=== PATIENT | female | born 1970 | race Caucasian/White ===

== ENCOUNTER 2022-05-30 12:37 | Emergency (ER) | payer BC, SELFPAY ==
[2022-05-30 12:57] VITALS: BP 115/85; PULSE 80; RESP 18; TEMP 36.7; O2SAT 95; BMI 34.0
[2022-05-30 13:05] VITALS: BP 118/96; PULSE 85; RESP 16; O2SAT 95
--- NOTE | 2022-05-30 13:41 | CRLHL7_ITS ---
For Patients: As a result of the Cures Act, medical imaging exams and procedure reports are released immediately into your electronic medical record. You may view this report before your referring provider. If you have questions, please contact your health care provider. INDICATION: CHEST PAIN; COVID +10 DAYS AGO TECHNIQUE: Chest 2 views COMPARISON: None FINDINGS: Cardiovascular and mediastinum: Heart size and vasculature are normal in caliber and appearance. Lungs and pleural spaces: Lungs are clear. No sign of infiltrate or mass. No sign of pleural effusion. No pneumothorax. Bones and soft tissues: No significant findings. IMPRESSION: No acute findings. Dictated by Cooper Pinto MD @ 05/30/2022 2:05:19 PM (Electronically Signed)
--- NOTE | 2022-05-30 13:42 | ED_ITS ---
HPI - Chest Pain General Time Seen by Provider: 13:37 Date Seen: 05/30/22 Chief Complaint: Chest Pain Stated Complaint: Covid+ 10 days ago, chest pain Time Seen by Provider: 05/30/22 13:18 Source: patient Mode of arrival: ambulatory Limitations: no limitations History of Present Illness HPI narrative: 51-year-old female with prior history of acute CVA who presents today with chest pain. Patient was diagnosed with COVID about 10 days ago. She notes diffuse anterior chest pain since then. This is worse in the morning and gets better during the course the day. She denies shortness of breath, pain does get a little worse with deep inspiration. She denies nausea, vomiting, diarrhea, abdominal pain, urinary symptoms. She has no cough. She has not had any fevers in the last couple of days. She is not currently on a blood thinner. She says if she bends forward and stands up too quickly she does get a little lightheaded. Related Data Home Medications Medication Instructions Recorded Confirmed levothyroxine 100 mcg tablet 100 mcg PO DAILY 03/26/22 03/26/22 loratadine 10 mg tablet 10 mg PO QDAY 03/26/22 03/26/22 sertraline 100 mg tablet 100 mg PO DAILY 03/26/22 03/26/22 sertraline 25 mg tablet 25 mg PO QDAY 03/26/22 03/26/22 trazodone 50 mg tablet 50 mg PO QDAY 03/26/22 03/26/22 diet pills 05/30/22 Allergies Allergy/AdvReac Type Severity Reaction Status Date / Time No Known Allergies Allergy Unknown Verified 03/26/22 15:19 Review of Systems Status of ROS Reports: 10 or more systems reviewed and unremarkable except as noted in History and below [facility] Social History Smoking Status: Never smoker Do you use any of these nicotine containing products: None Second hand tobacco smoke exposure: No How often do you have a drink containing alcohol: never AUDIT-C Alcohol total score: 0 Non-prescribed substance use: denies use Exam Narrative Exam Narrative: General: Well-developed and well-nourished, no acute distress Head: Atraumatic and normocephalic Eyes: Pupils are equal reactive, extraocular motions intact, conjunctiva clear ENT: External nose and ears are normal, posterior pharynx without erythema or exudate Neck: No midline cervical tenderness, full spontaneous range of motion the neck, trachea midline, no adenopathy Heart: Regular rate and rhythm no murmurs or thrills Lungs: Clear to auscultation bilaterally without wheezes or crackles Abdomen: Soft, nontender, nondistended with active bowel sounds Musculoskeletal: No tenderness, deformity, or edema Neurologic: Awake, alert, and oriented x3, no gross focal neurologic deficits, cranial nerves intact as tested Psych: Mood and affect are appropriate Skin: No rashes Const Vital Signs, click to edit/add: Vital Signs - 24 hr 05/30/22 12:57 Temperature 98.1 F Pulse Rate [Right Pulse Oximeter] 80 Respiratory Rate 18 Blood Pressure [Left Upper Arm] 115/85 Pulse Oximetry 95 Oxygen Delivery Method Room Air Documenting provider has reviewed patient's vital signs: yes Course Course Hospital Course: Patient seen and examined, prior records are reviewed. Patient with diffuse anterior chest pain since being diagnosed with COVID about 10 days ago. Pain is not worse with position, does get a little bit worse with deep inspiration. She denies any shortness of breath. No hypoxia or tachycardia, however high risk for pulmonary embolism given recent COVID. D-dimer is ordered. Labs including troponin ordered as well. IV fluids are initiated due to episodes of lightheadedness. She has no palpitations, CRP is ordered as well with consideration for endocarditis or myocarditis. Toradol IV will be given. Reevaluation(s) Reevaluation #1: Labs reassuring including normal troponin, negative D-dimer. Patient's vital is stable and can be discharged. She will be started on a short course of prednisone. Time: 15:17 Vital Signs Vital signs: Initial Vital Signs Temperature 98.1 F 05/30/22 12:57 Temperature Source Temporal Artery Scan 05/30/22 12:57 Pulse Rate 80 05/30/22 12:57 Pulse Rhythm 05/30/22 12:57 Respiratory Rate 18 05/30/22 12:57 Blood Pressure 115/85 05/30/22 12:57 Blood Pressure Mean 95 05/30/22 12:57 Blood Pressure Position Supine 05/30/22 12:57 Pulse Oximetry 95 05/30/22 12:57 Oxygen Delivery Method 05/30/22 12:57 Vital Signs Temperature 98.1 F 05/30/22 12:57 Pulse Rate 80 05/30/22 12:57 Respiratory Rate 18 05/30/22 12:57 Blood Pressure 115/85 05/30/22 12:57 Pulse Oximetry 95 05/30/22 12:57 Oxygen Delivery Method 05/30/22 12:57 Temperature 98.1 F 05/30/22 12:57 Pulse Rate 80 05/30/22 12:57 Respiratory Rate 18 05/30/22 12:57 Blood Pressure 115/85 05/30/22 12:57 Pulse Oximetry 95 05/30/22 12:57 Oxygen Delivery Method 05/30/22 12:57 MDM - Chest Pain Medical Records Data Attestation: I reviewed the patient's medical records. Lab Data Attestation: I reviewed the patient's lab results. Labs: Lab Results 05/30/22 05/30/22 05/30/22 Range/Units 14:12 14:12 14:12 D-Dimer Quant (PE/DVT) 0.33 (0.00-0.50) ug/ml Sodium 139 (135-149) mmol/L Potassium 4.4 (3.6-5.1) mmol/L Chloride 106 (96-114) mmol/L Carbon Dioxide 27 (20-32) mmol/L BUN 12 (7-30) mg/dL Creatinine 1.0 (0.5-1.5) mg/dL Estimated Creat Clear 57.47 Estimated GFR 68 ml/min Glucose 80 (60-115) mg/dL Calcium 9.2 (8.4-10.6) mg/dL POC Troponin I 0.00 L (0.01-0.04) ng/ml ECG Data Attestation: I personally reviewed and interpreted this ECG as follows: ECG interpretation date: 05/30/22 ECG interpretation time: 13:05 Prior ECG tracings: not available for review Interpretation: Performed at 1:00 p.m. demonstrates normal sinus rhythm rate 79, no acute ST elevations or depressions, normal intervals, normal axis, QTC 442, IL 144. No prior for comparison. Core Measures AMI core measures followed: No Measure exclusions: not indicated Discharge Plan Discharge Clinical Impression: Chest pain Condition: Stable Instructions: Chest Pain (DC) Additional Instructions: Take Tylenol as needed for pain or fever. Follow-up with your regular doctor next week if needed. Activity Level: No Restrictions Discharge Diet: Regular Prescriptions: No Action levothyroxine 100 mcg tablet 100 mcg PO DAILY sertraline 100 mg tablet 100 mg PO DAILY trazodone 50 mg tablet 50 mg PO QDAY sertraline 25 mg tablet 25 mg PO QDAY loratadine 10 mg tablet 10 mg PO QDAY diet pills Label Comments: Pt unable to recall name or strength of diet pills. Follow Up/Referrals: Provider,Not a Local [Primary Care Provider] - Stand Alone Forms: [employer] Info Instructions
--- OUTSIDE RECORDS SUMMARY | 2022-05-30 13:55 | XMS_ITS | Clinical Summary ---
:1970 Author Organization [facility] Address [address] [place] [address] Care Team Providers Name Role Phone Unavailable Primary Care Provider Unavailable Source Comments Patient records contain information from all sites at [facility]. For routine questions regarding patient records, call [phone] during business hours, M-F 8:00 AM - 5:00 PM Central Time. Record requests for emergency care only can be directed to [phone] at any time.[facility] Social History Tobacco Use Types Packs/Day Years Used Date Smoking Tobacco: Never Assessed Sex Assigned at Date Recorded Not on file Plan of Treatment Health Maintenance Due Date Last Done Comments CT Colonography 1970 Cologuard 1970 Colonoscopy 1970 Colorectal Cancer Screening 1970 FIT 1970 Fasting Glucose for 1970 Diabetes Screening HIV Screening 1970 Hepatitis B Vaccines (1 of 1970 3 - 3-dose series) Hepatitis C Screening 1970 Lipid (Cholesterol) 1970 Screening Mammogram 02/26/2011 02/26/2010 Cervical Cancer Screening 02/26/2013 02/26/2010 Zoster Vaccines (1 of 2) 2020 DTaP,Tdap,and Td Vaccines 03/06/2021 03/06/2011, 06/26/2001 (2 - Td or Tdap) Depression Screening 07/27/2021 (Annual PHQ-2) COVID-19 Vaccine (5 - 04/08/2022 02/11/2022, 06/25/2021, Booster for Moderna series) 11/09/2020, Addition al history exists Influenza Vaccine (#1) 2022 04/26/2020, 03/30/2020, 04/02/2019, Additional history exists Pneumococcal vaccine (0-64 Aged Out No lo nger eligible years) based on patient 's age to complete this topic Insurance Payer Benefit Plan / Subscriber ID Effective Phone Address T ype Group Dates PREFERREDONE PREFERREDONE [id number] 2019-Pre [phone] BOX PPO ADMINISTRATIVE ADMINISTRATIVE sent [phone] [employer] [place] [id number] Guarantor Name Account Type Relation to Date of Phone Billing Address Patient Debra Dias Personal/Famil Self 1970 [phone] [address] (Home) [place] [address]
--- OUTSIDE RECORDS SUMMARY | 2022-05-30 13:55 | XMS_ITS | Clinical Summary ---
:1970 Author Organization [facility] [place] [address] Care Team Providers Name Role Phone Tesfaye Raya MD Primary Care Provider [phone] Allergies Active Allergy Reactions Severity Noted Date Comments Birch 12/29/2005 Cats (Fur, Dander, Saliva) 12/29/2005 Eucalyptus Respiratory Distress Low 04/14/2015 Lactose 12/29/2005 Mold Extracts 12/29/2005 Medications Medication Sig Dispensed Refills Start Date End Date Status loratadine (CLARITIN) Take 10 mg by 0 Active 10 mg tablet mouth once daily if needed for Allergy Symptoms. lactase (LACTAID) Take 3 tablets by 270 tablet 0 05/09/2015 Active 3,000 unit mouth 3 times tabletIndications: daily with meals. Lactose intolerance in adult aspirin 325 mg Take 1 tablet by 90 tablet 1 06/07/2015 Active tabletIndications: mouth once daily Stroke (cerebrum) with a meal. (HC), Stroke (cerebrum) (HC) Cholecalciferol, Take 1 tablet by 90 tablet 3 06/07/2015 Active Vitamin D3, 2,000 mouth once daily. unit tabletIndications: Vitamin D deficiency medication order Replacement CPAP 1 Units 0 02/10/2019 Active composerIndications: mask and tubing Sleep apnea, unspecified type medication order Patient just 1 Tube 0 02/21/2019 Active composerIndications: needs the new Sleep apnea, hose, new unspecified type headgear and new nose plug for her CPAP machine fluocinonide 0.05% Apply topically 60 g 3 11/23/2019 Active topical (LIDEX) 0.05 to affected % creamIndications: area(s) 2 times Eczema, unspecified daily. type SEA-OMEGA 30 1,200 TAKE 2 CAPSULE BY 180 capsule 1 07/16/2020 Active (144-216) mg MOUTH NIGHTLY AT capsuleIndications: BEDTIME Stroke (cerebrum) (HC) nystatin-triamcinolon Apply topically 60 g 3 01/25/2021 Active e (MYCOLOG) to affected creamIndications: area(s) 3 times Angular stomatitis daily. metroNIDAZOLE 0.75 % Apply topically 1 Tube 3 02/11/2021 Active creamIndications: to affected Vaginal cyst area(s) 3 times daily. phentermine Take 1 Tablet 30 Tablet 5 02/07/2022 Act laverne (ADIPEX-P) 37.5 mg (37.5 mg) by tabletIndications: mouth once daily Obesity, Class II, before a meal. BMI 35-39.9 albuterol HFA Inhale 1-2 Puffs 1 Each 5 04/29/2022 Active (PRO-AIR; VENTOLIN; by mouth every 4 PROVENTIL) 90 hours while mcg/actuation awake. inhalerIndications: Exercise-induced asthma levothyroxine Take 1 Tablet (75 30 Tablet 11 04/29/2022 Active (SYNTHROID) 75 mcg mcg) by mouth tabletIndications: once daily. Hypothyroidism (acquired) QUEtiapine (SEROquel Take 1 Tablet (50 30 Tablet 11 04/29/2022 Active XR) 50 mg Tb24 mg) by mouth once Extended-Release daily. tabletIndications: Obsessive-compulsive disorder, unspecified type sertraline (ZOLOFT) Take 2 Tablets 60 Tablet 11 04/29/2022 Active 100 mg (200 mg) by mouth tabletIndications: once daily. Bipolar disorder, in partial remission, most recent episode depressed (HC) traZODone (DESYREL) Take 2 Tablets 60 Tablet 11 04/29/2022 Active 100 mg (200 mg) by mouth tabletIndications: at bedtime. Insomnia, idiopathic Active Problems Problem Noted Date Exercise-induced asthma 09/10/2021 Aphasia due to stroke 06/26/2015 Constipation 06/11/2015 Acute blood loss anemia 04/20/2015 Stroke , 04/10, s/p TPA and thrombectomy 04/14/2015 Sleep apnea , (CPAP) 12/12/2014 Obesity, Class II, BMI 35-39.9 12/12/2014 Insomnia 09/21/2012 Vitamin D deficiency 08/08/2010 Routine health maintenance 08/02/2010 Overview: Mammogram, 04/17 Hypothyroidism 12/21/2009 BIPOLAR DISORDER, [place]/antidepressants to be regula duran by Dr. Marie 08/16/2006 only. Resolved Problems Problem Noted Date Resolved Date Adjustment disorder with mixed disturbance of emotions and 0 08/16/2006 09/21/2012 conduct Unspecified personality disorder 08/16/2006 015 Adjustment disorder with mixed disturbance of emotions and 0 08/16/2006 09/21/2012 conduct DEPRESSION 02/06/2006 12/12/2014 Overview: Multiple stressors Encounters Date Type Specialty Care Team Description 05/30/2022 Nurse Triage Tesfaye Raya MD Chest Pain 04/29/2022 Telephone Tesfaye Raya MD 04/07/2022 Ancillary Procedure 04/07/2022 Travel from Last 3 Months Immunizations Name Administration Dates Next Due AMB INFLUENZA, IIV4 (AGE=>6MOS) MDV (Flu 04/26/2020 Clinic Only) Influenza, IIV3 (Age >=3 years) 06/02/2005, 05/22/2004 Influenza, IIV4 04/02/2019, 07/07/2016, 04/26/2015 Td (Age >=7 Years) 06/26/2001 Tdap 03/06/2011 Family History Medical History Relation Name Comments Cancer-colon Brother 1 Hypertension Brother 2 Heart Disease Father [place] at age 42-dec eased at age 61 Cancer-breast Maternal Aunt age ? 50's Hypertension Mother Cancer-ovarian No Family History Relation Name Status Comments Brother 1 Brother 2 Father Maternal Aunt Mother Social History Tobacco Use Types Packs/Day Years Used Date Never Smoker Smokeless Tobacco: Never Used Alcohol Use Standard Drinks/Week Comments No 0 (1 standard drink = 0.6 oz pure alcoho l) occ. One time a year. Alcohol Habits Answer Date Recorded How often do you have a drink containing alcohol? Never 09/10/2021 How many drinks containing alcohol do you have on Not asked a typical day when you are drinking? How often do you have six or more drinks on one Not asked occasion? Comment: occ. One time a year. 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 Respiratory Rate 15 05/28/2021 8:30 AM CDT Oxygen Saturation 97% 07/12/2021 4:17 PM INSURANCE VERIFICATION CLERK Inhaled Oxygen Concentration - - Weight 100.7 kg (222 lb) 02/07/2022 4:19 PM CDT Height 161.7 cm (5' 3.66) 02/07/2022 4:19 PM CDT Body Mass Index 38.51 02/07/2022 4:19 PM CDT Plan of Treatment Health Maintenance Due Date Last Done Comments Pneumococcal series for age 19-64 1976 (1 - PCV) Hepatitis C screening for age 0411/21/1988 18-79 Colonoscopy through age 75 11/22/2015 Zoster (shingles) series for age 0411/21/2020 50+ (1 of 2) Tetanus booster 03/06/2021 03/06/2011, 06/26/2001 Influenza for age 50-64 03/27/2022 04/26/2020, 04/02/2019, 07/07/2016, Additional history exists COVID-19 vaccine series (5 - 04/08/2022 02/11/2022, 021, Booster for Moderna series) 11/09/2020, Addition al history exists BMI (ht and wt on same day) for 02/07/2023 02/07/2022, 08/27, age 18+ 02/11/2021, Additional history exists Depression screening for age 12+ 02/07/2023 02/07/2022, , 08/24/2020, Additional history exists Pap test for age 21-65 02/12/2023 02/13/2020, 07/31/2016, 12/12/2014, Additional history exists Mammogram for age 45-75 04/07/2023 04/07/2022, 02/20/2021, 02/12/2021, Additional history exists Lipids for age 45-75 02/07/2027 02/07/2022, 02/11/2021, 02/13/2020, Additional history exists Tdap Completed 03/06/2011 Procedures Procedure Name Priority Date/Time Associated Diagnosis Comme nts XR MAMMO TERRI BILAT Routine 04/07/2022 12:05 PM Visit for scre ening Results for this SCREEN CDT mammogram procedure are i n the results section. from Last 3 Months Results XR MAMMO TERRI BILAT SCREEN (04/07/2022 12:05 PM CDT) Anatomical Region Laterality Modality BREASTS, Breast Left, Breast Right Bilateral Mammo graphy Specimen (Source) Anatomical Location Collection Method / Collectio n Time Received Time / Laterality Volume Impressions 04/08/2022 12:03 PM CDT ??There is no radiographic evidence for malignancy. ??Recommend annual mammograms. MAMMOGRAM ASSESSMENT: ??ACR 1 Negative PATIENTS: You will also receive a letter with your examination results in an easy to read format. ??If you have qu estions about your results, please contact your referring provider. Narrative 04/08/2022 12:03 PM CDT For Patients: As a result of the Century Cures Act, medical imaging exams and procedure reports are released immediately into your electronic medical record. You may view this report before your referring provider. If you have questions, please contact [facility] care provider. XR MAMMO TERRI BILAT SCREEN [[id number]] CLINICAL HISTORY: ??This is an asymptoma tic 51 y.o. patient. INDICATION FOR EXAM: Mammogram Screening . TECHNIQUE: CC & MLO views were obtained. ??This study was evaluated with the assistance of Computer-Aided Detecti on. Breast Tomosynthesis was used in interpretation. COMPARISON FILM: Yes 02/12/21 [facility] 01/05/18 [facility] FINDINGS: ??The breasts are heterogeneou sly dense, which may obscure small masses. There are no dominant masses, armas spicious micro calcifications or areas of architectural distortion. 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
--- OUTSIDE RECORDS SUMMARY | 2022-05-30 13:56 | XMS_ITS | Encounter Summary ---
:1970 [facility] Address [address] [place] [address] Care Team Providers Name Role Phone Unavailable Primary Care Provider Unavailable Reason for Visit Reason Comments Other Encounter Details Date Type Department Care Team Description 04/21/2015 Telephone Careline Unassigned, Provider Other [address] [place], [place] [address] [place] [address] Social History Tobacco Use Types Packs/Day Years Used Date Smoking Tobacco: Never Assessed Sex Assigned at Date Recorded Not on file documented as of this encounter Nursing Notes Agnes Ng RN - 04/21/2015 11:05 PM CDT pt's spouse doesn't think pt is safe their and he is wondering how difficult it would be to have hertransferred somewhere else. Caller has not spoke with staff there about his concerns (why would I do that?) Caller states last night he left for 6 hours and he came back and her feeding tube was bleeding States he is staying with her tonight. Advised caller discuss his concerns with supervisors at the hospital Caller states understanding and agrees with plan and denies further questions at this time. Agnes Ng RN Nilesh Rodriguez - 04/21/2015 10:38 PM CDT Which care system or clinic is the patient normally seen at? [facility]. Situation:Patient had a stroke on Thursday and does not feel safe at the [facility]. would like to have her transferred. Plan:A nurse will return your call. If your symptoms change for the worse, please call us back [phone].. documented in this encounter Plan of Treatment Not on filedocumented as of this encounter Visit Diagnoses Not on filedocumented in this encounter
--- OUTSIDE RECORDS SUMMARY | 2022-05-30 13:56 | XMS_ITS | Encounter Summary ---
:1970 Author Organization [facility] Address [address] [place] [address] Care Team Providers Name Role Phone Unavailable Primary Care Provider Unavailable Reason for Visit Reason Comments COVID Nurse Line Encounter Details Date Type Department Care Team Description 04/29/2020 Clinical Communication Division of India Rubalcava COV ID Nurse Line [facility] Internal R.N. [facility], [facility] in [place], [place] [address] [place] [address] Social History Tobacco Use Types Packs/Day Years Used Date Smoking Tobacco: Never Assessed Sex Assigned at Date Recorded Not on file documented as of this encounter Miscellaneous Notes Telephone Encounter - India Rubalcava, RAmirahN. - 04/29/2020 9:18 AM CDT COVID-19 Nurse Line Screening ASSESSMENT COVID 19 Screening Have you had close contact with a person who has a LABORATORY CONFIRMED case of COVID-19 in the past14 days?: No - Continue screening. In the last 48 hours have you had any of the following symptoms?: No - Complete screening. Testing is not recommended at this time. May consider asymptomatic testing if advised for public health, work,school and travel related purposes PLAN Endpoint recommendation: Screening negative, testing indicated per request for father is having symptoms so parents want the whole family tested, sent to [facility] located at [address] Testinghours are M-F 8:30 am to 4:30 pm. Sat-Sun 9 am to 12:30 pm. When you arrive stay in your car and someone will direct you. , If it is currently after hours, please report to the testing site when it is next open. and Please avoid using public transportation per CDC recommendation. If you do not have personal transportation please self- quarantine until a personal transportation option is available. Care Points provided: STANDARD PRECAUTIONS FOR ALL PATIENTS: Wash hands often with soap and water for at least 20 seconds, especially after blowing your nose, coughing, sneezing, or having been in a public place. If soap and water aren't available, use a hand entry level software engineer that contains at least 60% alcohol. Avoid close contact with anyone who may be exhibiting respiratory symptoms such as coughing and sneezing. Avoid touching your eyes, nose and mouth. Clean and disinfect frequently touched surfaces daily. Cover your mouth and nose with a cloth face cover when around others or in public. The cloth face cover is not a substitute for social distancing. Continue to keep about 6 feet between yourself andothers. Monitor for symptoms. Do not take your temperature within 30 minutes of exercise. If your test or screen is negative and new symptoms develop please contact your provider if it has been greaterthan 72 hours since you were tested. Educational Resource: https://www.cdc.gov/coronavirus/2019-ncov/ zcqgtzk-kctqcnt-tyhu/index.html RECOMMENDATIONS TESTING CRITERIA IS MET: Stay home except to get medical care. Quarantine for 14 days if exposed to someone with a laboratory confirmed case of COVID-19 exposure regardless of your test results. Avoid public areas and public transportation. Separate yourself from other people and stay in a specific sick room if possible. Wear a cloth face covering, over your nose and mouth if youmust be around other people even at home). Cover your nose and mouth when coughing or sneezing. Contact employer/occupational health department to notify them that they are being tested. Seek emergent care if any of the following occur: 1) Trouble breathing, 2) Bluish lips or face, 3) Persistent pain or pressure in the chest, 4) Newly confused or unable to stay alert and awake. Notify appropriate care provider if any new or worsening symptoms. You may need re-testing if it has been greater than 72 hours after a negative COVID- 19 test result. Education Resources: https://www.cdc.gov/coronavirus/2019- ncov/hn-zdf-cih-sick/ehquj-dlig-vjyg.html Education: Patient/caregiver able to teach back Patient agreeable to plan of care: Yes The following references were used: [facility] novel coronavirus (COVID- 19) resources Nursing judgement documented in this encounter Plan of Treatment Not on filedocumented as of this encounter Visit Diagnoses Not on filedocumented in this encounter Additional Health Concerns Infection Onset Date Last Indicated Resolved Time COVID19 Pending 04/29/2020 04/29/2020 04/30/2020 1:53 AM CDT Assessment Noted Time PHQ-9 Depression Total Score: 5 05/20/2010 10:39 AM CD T documented as of this encounter
--- OUTSIDE RECORDS SUMMARY | 2022-05-30 13:56 | XMS_ITS | Encounter Summary ---
:1970 Author Organization [facility] Address [address] [place] [address] Care Team Providers Name Role Phone Unavailable Primary Care Provider Unavailable Reason for Visit Reason Onset Date Comments Outpatient COVID-19 Testing 04/29/2020 Encounter Details Date Type Department Care Team Description 04/29/2020 External Outreach Department of Wendy Minor , Infection Upper Medicine in [facility] C[facility] Respiratory ([place], [place] [address] Dx) [address] [place] [address] [phone] Social History Tobacco Use Types Packs/Day Years Used Date Smoking Tobacco: Never Assessed Sex Assigned at Date Recorded Not on file documented as of this encounter Progress Notes Yadira Lebron, R.M.A. - 04/29/2020 9:18 AM CDT Encounter created for the drive-through COVID-19 testing. documented in this encounter Plan of Treatment Not on filedocumented as of this encounter Procedures Procedure Name Priority Date/Time Associated Diagnosis Comme nts SARS CORONAVIRUS-2 Routine 04/29/2020 10:43 AM Infection Upper Results for this RNA, V CDT Respiratory procedure are i n the results section. documented in this encounter Results SARS Coronavirus-2 RNA, V Symptomatic (04/29/2020 10:43 AM CDT) [facility] Method Time Signature SARS-CoV-2 Swab, 04/30/2020 MKTO Specimen Nasopharynx 1:53 AM CDT Source SARS CoV-2 Undetected Undetected 04/30/2020 MKTO RNA, TMA 1:53 AM CDT Comment: SARS-CoV-2 RNA absent. This result does not rule out COVID-19 in the patient, as the sensitivity of the test depends o n the timing of the specimen collection and the quality of the specim en. Result should be correlated with patient's history and clinical presentat ion. ----ADDITIONAL INFORMATION---- This test is performed using the Aptima SARS-CoV-2 assay ([employer] which has received Emergency Use Authori zation (EUA) by the U.S. Food and Drug Administration. Fact sheets for this Emergency Use Autho rization (EUA) assay can be found at the following links: For Healthcare Providers: https://www.[employer] a.gov/media/672017/download For Patients: https://www.fda.gov/media/ 855205/download Specimen Anatomical Collection Method Collection Time Receive d Time (Source) Location / / Volume Laterality Varies 04/29/2020 10:43 04/29/2020 4:29 (Nasopharynx) AM CDT PM CDT Wendy Garcia APRN C.N.P. LAB MICROBIOLOGY - GENERAL ORDERABLES Performing Organization Address City/State/ZIP Code Phon e Number [facility]- [address] [place] [address] [place] [address] [address] documented in this encounter Visit Diagnoses Diagnosis Infection Upper Respiratory - Primary documented in this encounter Additional Health Concerns Infection Onset Date Last Indicated Resolved Time COVID19 Pending 04/29/2020 04/29/2020 04/30/2020 1:53 AM CDT Assessment Noted Time PHQ-9 Depression Total Score: 5 05/20/2010 10:39 AM CD T documented as of this encounter
--- OUTSIDE RECORDS SUMMARY | 2022-05-30 13:56 | XMS_ITS | Encounter Summary ---
:1970 Author Organization [facility] Address [address], [place] [address] Care Team Providers Name Role Phone Tesfaye Raya MD Primary Care Provider Reason for Visit Reason Comments Thyroid Problem Encounter Details Date Type Department Care Team Description 05/29/[address] [facility] [address] Ay[address] Damon ypothyroidism (acquired) (Primary Dx); Endocrinology CMD Abnormal TSH [address] [facility] [address] [phone] Social History Tobacco Use Types Packs/Day Years Used Date Smoking Tobacco: Never Sex Assigned at Date Recorded Not on file documented as of this encounter Last Filed Vital Signs Vital Sign Reading Time Taken Comments Blood Pressure 120/84 05/29/2016 1:46 PM CDT Pulse 72 05/29/2016 1:46 PM CDT Temperature - - Respiratory Rate - - Oxygen Saturation - - Inhaled Oxygen Concentration - - Weight 84.3 kg (185 lb 14.4 oz) 05/29/2016 1:46 PM CDT Height 160 cm (5' 3) 05/29/2016 1:46 PM CDT Body Mass Index 32.93 05/29/2016 1:46 PM CDT documented in this encounter Progress Notes Jude Morales LPN - 06/25/2016 2:28 PM CST Patient contacted to get update on doctor who referred her to endocrinology to send doctors note. Patient updated that Dr. Ambriz referred yet patient is requesting notes from visit be sent to him, and Dr. Marie. Ayad Diaz MD - 05/29/2016 1:56 PM CDT [facility] Department of Endocrinology, Diabetes and Metabolism Clinic Note Name: Debra Dias Date: 05/29/2016 Cc: Abnormal TFTs.(low TSH on 04/09/2016). HPI: Debra Dias is a 45 y.o. female who is being seen in consultation for recommendations regardingabnormal TFTs. Review of labs done through patient's neurologist Dr. Ambriz showed a low TSH of <0.0006 and thyroid hormones FT4 and FT3 wnl at 1.28 (range: 0.82-1.77) and 3.4 (range: 2-4.4), respectively. Thyroglobulin AB and TPO antibodies are both wnl as of labs done 04/02/2016. Patient has prior history of hypothyroidism of hypothyroidism since 2005. She had been on levothyroxine initially and is currently on both levothyroxine and liothyronine. Patient is getting prescriptions for levothyroxine through Dr. Raya her primary care, and was on it by itself since 2005. Liothyronine 25mcg PO daily was added 6 months ago by patient's psychiatrist Dr. Cher Marie. She is currently on levothyroxine 100mcg PO daily and liothyronine 25mcg PO daily. Takes both medications together in the morning, on an empty stomach. Waits 30 minutes before eating or taking others. 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 Denies having any palpitations, irregular heart rhythm. Has chronic anxiety and is on zoloft for this. Denies having any heat or cold intolerance, bowel movement changes. Since her stroke, lost about 50 lbs., which she states is unintentional, but states that she has been exercising regularly 4-5 days/week now since the stroke. ROS: Denies having any fever, chills, cough, chest pains, abdominal pain, n/v, dysuria, hematuria, rash, jaundice, pruritus, melena, hematochezia, falls, fractures, LOC, or seizures. A 10 point ROS was done, and is negative unless specified otherwise in the HPI. Medications: Medication list was reviewed and updated on the EMR. PMHx: No past medical history on file. FHx: family history is not on file. SHx: Social History Substance Use Topics ??? Smoking status: Never Smoker ??? Smokeless tobacco: None ??? Alcohol Use: None Physical Examination: Vitals: BP 120/84 mmHg Pulse 72 Ht 5' 3 (1.6 m) Wt 185 lb 14.4 oz (84.324 kg) BMI 32.94 kg/m2 General: The patient is alert and oriented, no acute distress. Eyes: EOMI, pupils are equal and reactive to light. ENT: Mucous membranes are moist. Neck: Supple, no palpable lymph nodes. Thyroid: No exophthalmos, no lid lag or retraction. Thyroid gland is not palpable. Chest: Clear to auscultation bilaterally. Normal S1 and S2, no murmurs. Abdomen: Soft and lax with no palpable masses, bowel sounds present. Neurologic exam: Power is symmetrical 5/5 in upper and lower extremities. Reflexes are normal and symmetrical bilaterally. Upper extremities: No bipedal edema. Right hand tremors. Labs: Reviewed and summarized in the HPI. Assessment and Plan: Debra Dias is a 45 y.o. female who is being seen in consult for abnormal thyroid function tests. Review of labs done through patient's neurologist Dr. mAbriz showed a low TSH of <0.0006 and thyroid hormones FT4 and FT3 wnl at 1.28 (range: 0.82-1.77) and 3.4 (range: 2-4.4), respectively. Thyroglobulin AB and TPO antibodies are both wnl as of labs done 04/02/2016. She had lost 50 lbs since her stroke, in part due to exercise, and consequently may be requiring less thryoid hormone. As these labswere drawn in 04/02/2016, I would recommend repeating them to see her current thyroid status. If stillwith low TSH, this would indicate she is getting too much thyroid. Discussed options including staying on both levothyroxine and liothyronine but cutting down on dose of levothyroxine, or try stopping liothyronine first. Patient prefers to stop liothyronine first if needed, which is a reasonable thingto do. We may still need to make further adjustments in the future based off of her labs. Will recheck TSH, FT4, FT3, and advise further once labs are resulted. Advised on proper intake of thyroid hormone this visit. Follow-up in 3 months. Plan of care discussed with patient. She verbalized understanding and is agreeable. Ayad Damon MD Density Control Puncher documented in this encounter Plan of Treatment Not on filedocumented as of this encounter Results T3 - Triiodothyronine, Free (FRT3) (05/29/2016 2:45 PM CDT) athologist Signature Triiodothyronin 3.4 1.7 - 3.7 PN SOFT e, Free pg/mL Specimen Anatomical Collection Method Collection Time Receive d Time (Source) Location / / Volume Laterality 05/29/2016 2:45 PM 6 5:44 CDT PM CDT Narrative PN SOFT - 05/29/2016 7:23 PM CDT Performed at [facility], [address] [place] [address] CLIA number [id number] Ayad Damon MD LAB_1 Performing Organization Address City/State/ZIP Code Phon e Number PN SOFT [address] [place] [address] Free T4 (05/29/2016 2:45 PM CDT) athologist Signature Thyroxine, Free 1.0 0.7 - 1.5 PN SOFT ng/dL Specimen Anatomical Collection Method Collection Time Receive d Time (Source) Location / / Volume Laterality 05/29/2016 2:45 PM 6 5:44 CDT PM CDT Narrative PN SOFT - 05/29/2016 7:23 PM CDT Performed at [address] [address] CLIA number [id number] Ayad Damon MD LAB_1 Performing Organization Address [facility] Phon e Number PN SOFT [address] [place] [address] (ABNORMAL) Thyroid Stimulating Hormone (TSH) (05/29/2016 2:45 PM CDT) [facility] Method Time Signature Thyroid <0.02 (A) 0.20 - PN SOFT Stimulating 4.50 Hormone uIU/mL Specimen Anatomical Collection Method Collection Time Receive d Time (Source) Location / / Volume Laterality 05/29/2016 2:45 PM 6 5:44 CDT PM CDT Narrative PN SOFT - 05/29/2016 6:56 PM CDT Performed at [address] [address] CLIA number [id number] Ayad Damon MD LAB_1 Performing Organization Address [facility] Phon e Number PN SOFT [address] [place] [address] [phone] documented in this encounter Visit Diagnoses Diagnosis Hypothyroidism (acquired) ([facility]) - Primar y Unspecified hypothyroidism Abnormal TSH Other abnormal clinical finding Hypothyroidism (acquired) ([facility]) Unspecified hypothyroidism Abnormal TSH Other abnormal clinical finding documented in this encounter Care Teams Sausage Smoker Relationship Specialty Start Date End Date Tesfaye Raya MD PCP - General Family Practice 05/29/16 [address] [place] [address] documented as of this encounter
--- OUTSIDE RECORDS SUMMARY | 2022-05-30 13:56 | XMS_ITS | Encounter Summary ---
:1970 Author Organization [facility] Address [address] [place] [address] Care Team Providers Name Role Phone Tesfaye Raya MD Primary Care Provider [phone] Reason for Visit Reason Comments COVID Test Results Encounter Details Date Type Department Care Team Description 12/30/2019 Telephone [facility] [place] VID Test Results Practice [facility] [place] [address] [facility] [address] [place], [place] [address] [place], [place] [phone] (Wo rk) Social History Tobacco Use Types Packs/Day Years Used Date Smoking Tobacco: Never Assessed Sex Assigned at Date Recorded Not on file documented as of this encounter Nursing Notes Tracie Richard RN - 12/30/2019 12:59 PM CDT Patient was notified that COVID-19 testing was negative. Date of onset of symptoms 12/28/2019 Current symptoms consist of Sore Throat Other symptoms consist of N/A Progression of symptoms improving Patient was given and able to verbalize home isolation instructions for patients that have tested negative Continue to use best practices to stop the spread of illness, such as covering your cough and washing your hands. Reminder: If the patient needs documentation of their results, a printout is available on [employer] ora letter has been sent via mail (if inactive on [employer]). The following advice may help if you have a fever, sore throat, cough, or sinus infection/pain: Getting plenty of rest and drinking water to stay hydrated is mckenzie to feeling better. Tracie Richard RN 12/30/2019, 12:59 PM documented in this encounter Plan of Treatment Not on filedocumented as of this encounter Visit Diagnoses Not on filedocumented in this encounter Additional Health Concerns Infection Onset Date Last Indicated Resolved Time R/O COVID19 12/29/2019 12/29/2019 12/30/2019 12:58 AM CDT documented as of this encounter Care Teams Structural Steel Trades Worker Relationship Specialty Start Date End Date Tesfaye Raya MD PCP - General Family Practice 05/29/16 [address] [place] [address] documented as of this encounter
--- OUTSIDE RECORDS SUMMARY | 2022-05-30 13:56 | XMS_ITS | Encounter Summary ---
:1970 Author Organization [facility] Address [address] [place] [address] Care Team Providers Name Role Phone Unavailable Primary Care Provider Unavailable Encounter Details Date Type Department Care Team Description 07/15/2006 - Hospital Encounter HX RST GENER[facility] 3 WEST 07/23/2006 Social History Tobacco Use Types Packs/Day Years Used Date Smoking Tobacco: Never Assessed Sex Assigned at Date Recorded Not on file documented as of this encounter Plan of Treatment Not on filedocumented as of this encounter Visit Diagnoses Not on filedocumented in this encounter
--- OUTSIDE RECORDS SUMMARY | 2022-05-30 13:56 | XMS_ITS | Encounter Summary ---
:1970 Author Organization [facility] Address [address] [place] [address] Care Team Providers Name Role Phone Unavailable Primary Care Provider Unavailable Reason for Visit Reason Onset Date Comments INFECTION, EAR 10/26/2008 Encounter Details Date Type Department Care Team Description 10/26/2008 Telephone Careline Unassigned, Provider INFECTION, EAR [address] [place], [place] [address] [place] [address] Social History Tobacco Use Types Packs/Day Years Used Date Smoking Tobacco: Never Assessed Sex Assigned at Date Recorded Not on file documented as of this encounter Nursing Notes Joao Hackett RN - 10/26/2008 9:31 PM CDT Patient identified her self by full name, date of , medical identification number and/or health insurance number. TRIAGE REFERENCE: EAR PAIN - ADULT CNG (c) 2006 Concern: called pt back. Pt states she only has pain in her right ear, symptoms started last night. Pt states she normally wears a unarmed security guard because she grinds her teeth, but forgot to wear. Pt otherwise, asymptomatic. Today, she noticed a slight headache. Pt calling to find out if possibly an ear infection. STAT SYMPTOMS: None per guideline ASSESSMENT: Intensity: Moderate, ear congestion: No. Aggravating event: pt did not wear unarmed security guard last night. Grinds teeth. Drainage: No. Fever: afebrile. History of recent cerumen impaction: No. URI symptoms: none. History of otitis media: No. History of Diabetes Mellitus: No. Hearing disturbance: No. PMH: Healthy. CURRENT MEDICATIONS: No. MEDICATION ALLERGIES: No. HOME TREATMENT: Discussed per guideline ASA gr X/Acetaminophen 500mg q 4 hours prn pain if no contraindication PLAN: Since pt is going to wear unarmed security guard tonight, reevaluate symptoms in the morning, if still having the ear pain, and no improvement, have evaluated in clinic. Symptoms though do not appear be r/cr ear infection. The patient indicates understanding of these issues and agrees with the plan. Joao Hackett RN 10/26/2008, 9:31 PM Yelena Cortez - 10/26/2008 9:14 PM CDT Does the patient currently have [employer] insurance? Yes Which care system is the patient affiliated with? Other Situation: pain in right ear,headache Background: A nurse will call you back within the next hour. If you have not heard from a nurse, please feel free to call us back at [phone] and state that you are waiting for a callback. documented in this encounter Plan of Treatment Not on filedocumented as of this encounter Visit Diagnoses Not on filedocumented in this encounter
--- OUTSIDE RECORDS SUMMARY | 2022-05-30 13:56 | XMS_ITS | Encounter Summary ---
:1970 Author Organization [facility] Address [address], [place] [address] Care Team Providers Name Role Phone Unavailable Primary Care Provider Unavailable Encounter Details Date Type Department Care Team Description 03/01/2010 Orders Only [employer] Claims MD Te[employer] Security Contact Bill [address] [place] [address] Mailstop [id number] [phone] (Wo rk) Social History Tobacco Use Types Packs/Day Years Used Date Smoking Tobacco: Never Assessed Sex Assigned at Date Recorded Not on file documented as of this encounter Plan of Treatment Not on filedocumented as of this encounter Visit Diagnoses Not on filedocumented in this encounter
--- OUTSIDE RECORDS SUMMARY | 2022-05-30 13:56 | XMS_ITS | Encounter Summary ---
:1970 Author Organization [employer] Address [address], [place] [address] Care Team Providers Name Role Phone Tesfaye Raya MD Primary Care Provider [phone] Reason for Visit Reason Onset Date Comments UPDATE 06/03/2016 Encounter Details Date Type Department Care Team Description 06/03/2016 Telephone [facility] [address] Linda Damon MD UPDATE Endocrinology [address] [place] [address] [place] [address] [phone] Social History Tobacco Use Types Packs/Day Years Used Date Smoking Tobacco: Never Sex Assigned at Date Recorded Not on file documented as of this encounter Progress Notes Radha Noriega RN - 08/15/2016 12:58 PM CULINARY WORKER Addended by: RADHA NORIEGA on: 08/15/2016 12:58 PM Modules accepted: Orders NARY WORKER documented in this encounter Nursing Notes Radha Noriega RN - 08/15/2016 12:57 PM CST Lab called, orders need to be entered as lab correct. Labs re-entered. NARY WORKER Jude Morales LPN - 06/03/2016 10:13 AM CST Patient contacted and updated on information provided. Patient verbalized understanding and requesting that thyroid lab orders be mailed to home address. Lab orders mailed and Liothyronine discontinued. NARY WORKER Jude Morales LPN - 06/03/2016 10:13 AM CST ----- Message from Ayad Damon MD sent at 06/02/2016 2:24 PM CULINARY WORKER ----- TFTs show TSH is low, while thyroid hormone are wnl. Please advise patient to stop liothyronine. Continue current dose of levothyroxine 100mcg PO daily and update med list. Recheck TSH, FT4, to be doneprior to next visit. Diagnosis: Hypothyroidism, acquired. Thanks. NARY WORKER documented in this encounter Plan of Treatment Not on filedocumented as of this encounter Results Free T4 (08/15/2016 1:03 PM CULINARY WORKER) athologist Signature Thyroxine, Free 0.9 0.7 - 1.5 PN SOFT ng/dL Specimen Anatomical Collection Method Collection Time Receive d Time (Source) Location / / Volume Laterality 08/15/2016 1:03 PM 7 2:39 CULINARY WORKER PM CULINARY WORKER Narrative PN SOFT - 08/15/2016 3:37 PM CULINARY WORKER Performed at [facility], [address] [place] [address] CLIA number [id number] Ayad Damon MD LAB_1 Performing Organization Address City/State/ZIP Code Phon e Number PN SOFT [address] [place] [address] documented in this encounter Visit Diagnoses Diagnosis Acquired hypothyroidism (HRC) - Primary Unspecified hypothyroidism Acquired hypothyroidism (HRC) Unspecified hypothyroidism documented in this encounter Care Teams Mine Deputy Relationship Specialty Start Date End Date Tesfaye Raya MD PCP - General Family Practice 05/29/16 [address] [place] [address] documented as of this encounter
--- OUTSIDE RECORDS SUMMARY | 2022-05-30 13:56 | XMS_ITS | Encounter Summary ---
:1970 Author Organization [facility] Address [address] [address] Care Team Providers Name Role Phone Tesfaye Raya MD Primary Care Provider [phone] Reason for Visit Reason Onset Date Comments COVID Questions 12/29/2019 Encounter Details Date Type Department Care Team Description 12/29/[address] [facility], Drive-Up Encounter for screening [address] [facility] [place] [address] diseases (Primary Dx) [phone] Social History Tobacco Use Types Packs/Day Years Used Date Smoking Tobacco: Never Assessed Sex Assigned at Date Recorded Not on file documented as of this encounter Plan of Treatment Not on filedocumented as of this encounter Procedures Procedure Name Priority Date/Time Associated Comments Diagnosis 2019 NOVEL Routine 12/29/2019 3:29 PM Encounter for Results for this CORONAVIRUS CDT screening for other procedur e are in viral diseases the results section. documented in this encounter Results Symptomatic - 2019 Novel Coronavirus (COVID-19) (12/29/2019 3:29 PM CDT) [facility] Method Time Signature COVID-19 Not Not [facility] Interpretation Detected Detected 12:58 AM CENTRAL LAB CDT Specimen Anatomical Collection Method Collection Time Receive d Time (Source) Location / / Volume Laterality Swab (Source Non-blood 12/29/2019 3:29 PM 0 5:28 Required) Collection / CDT PM CDT Unknown Narrative [facility] - 12/30/2019 12:58 AM CDT Test performed by Nucleic Acid Amplification. This test has not been approved by the F DA, but has been submitted for authorization through the FDA's Emergency Use Authorization pathway. The performance characteristics of this assay have been established by [facility]. Jet Hendrickson MD LAB_1 Performing Organization Address City/State/ZIP Code Phon e Number [facility] [address] [address] documented in this encounter Visit Diagnoses Diagnosis Encounter for screening for other viral diseases - Primary documented in this encounter Additional Health Concerns Infection Onset Date Last Indicated Resolved Time R/O COVID19 12/29/2019 12/29/2019 12/30/2019 12:58 AM CDT documented as of this encounter Care Teams Mild Disabilities Teacher Relationship Specialty Start Date End Date Tesfaye Raya MD PCP - General Family Practice 05/29/16 [address] [place] [address] documented as of this encounter
--- OUTSIDE RECORDS SUMMARY | 2022-05-30 13:56 | XMS_ITS | Encounter Summary ---
:1970 Author Organization [employer] Address [address], [place] [address] Care Team Providers Name Role Phone Tesfaye Raya MD Primary Care Provider [phone] Encounter Details Date Type Department Care Team Description 05/29/2016 Lab Visit [facility] 38[address] Hypothyro idism (acquired); Laboratory Abnormal TSH [address] [place], [place] [address] Social History Tobacco Use Types Packs/Day Years Used Date Smoking Tobacco: Never Sex Assigned at Date Recorded Not on file documented as of this encounter Progress Notes Ayad Damon MD - 06/02/2016 2:24 PM PHYSICIAN GENERAL INTERNAL MEDICINE Quick Note: TFTs show TSH is low, while thyroid hormone are wnl. Please advise patient to stop liothyronine. Continue current dose of levothyroxine 100mcg PO daily and update med list. Recheck TSH, FT4, to be done prior to next visit. Diagnosis: Hypothyroidism, acquired. Thanks. [facility]CIAN GENERAL INTERNAL MEDICINE documented in this encounter Plan of Treatment Not on filedocumented as of this encounter Procedures Procedure Name Priority Date/Time Associated Diagnosis Comme nts THYROID STIMULATING Routine 05/29/2016 2:45 Hypothyroidism Res ults for this HORMONE PM CDT (acquired) procedure are in Abnormal TSH the results section. T3, FREE Routine 05/29/2016 2:45 Hypothyroidism Results fo r this PM CDT (acquired) procedure are in Abnormal TSH the results section. FREE T4 Routine 05/29/2016 2:45 Hypothyroidism Results fo r this PM CDT (acquired) procedure are in Abnormal TSH the results section. documented in this encounter Results T3 - Triiodothyronine, Free (FRT3) (05/29/2016 2:45 PM CDT) athologist Signature Triiodothyronin 3.4 1.7 - 3.7 PN SOFT e, Free pg/mL Specimen Anatomical Collection Method Collection Time Receive d Time (Source) Location / / Volume Laterality 05/29/2016 2:45 PM 6 5:44 CDT PM CDT Narrative PN SOFT - 05/29/2016 7:23 [place] [address] CLIA number [id number] Ayad Damon MD LAB_1 Performing Organization Address [facility] Phon e Number PN SOFT [address] [place] [address] Free T4 (05/29/2016 2:45 PM CDT) athologist Signature Thyroxine, Free 1.0 0.7 - 1.5 PN SOFT ng/dL Specimen Anatomical Collection Method Collection Time Receive d Time (Source) Location / / Volume Laterality 05/29/2016 2:45 PM 6 5:44 CDT PM CDT Narrative PN SOFT - 05/29/2016 7:23 PM CDT Performed at [address] [address] CLIA number [id number] Ayad Damon MD LAB_1 Performing Organization Address [facility] Phon e Number PN SOFT [address] [place] [address] (ABNORMAL) Thyroid Stimulating Hormone (TSH) (05/29/2016 2:45 PM CDT) [facility] Method Time Signature Thyroid <0.02 (A) 0.20 - PN SOFT Stimulating 4.50 Hormone uIU/mL Specimen Anatomical Collection Method Collection Time Receive d Time (Source) Location / / Volume Laterality 05/29/2016 2:45 PM 6 5:44 CDT PM CDT Narrative BISHOP WOO - 05/29/2016 6:56 PM CDT Performed at [facility], [address] [place] [address] CLIA number [id number] Ayad Damon MD LAB_1 Performing Organization Address City/State/ZIP Code Phon e Number SOFT [address] [place] [address] [phone] documented in this encounter Visit Diagnoses Diagnosis Hypothyroidism (acquired) (HRC) Unspecified hypothyroidism Abnormal TSH Other abnormal clinical finding documented in this encounter Care Teams Instructor [employer] Relationship Specialty Start Date End Date Tesfaye Raya MD PCP - General Family Practice 05/29/16 [address] [place] [address] documented as of this encounter
--- OUTSIDE RECORDS SUMMARY | 2022-05-30 13:56 | XMS_ITS | Encounter Summary ---
:1970 Author Organization [facility] Address [address] [place] [address] Care Team Providers Name Role Phone Unavailable Primary Care Provider Unavailable Encounter Details Date Type Department Care Team Description 08/06/2003 - Hospital Encounter HX RST SLEEP FLOOR Jensen Sanders, 08/13/2003 PRACTICE M.D. [address] [place] [id number] Social History Tobacco Use Types Packs/Day Years Used Date Smoking Tobacco: Never Assessed Sex Assigned at Date Recorded Not on file documented as of this encounter Plan of Treatment Not on filedocumented as of this encounter Visit Diagnoses Not on filedocumented in this encounter
--- OUTSIDE RECORDS SUMMARY | 2022-05-30 13:56 | XMS_ITS | Encounter Summary ---
:1970 Author Organization [employer] Address [address] [address] Care Team Providers Name Role Phone Tesfaye Raya MD Primary Care Provider [phone] Encounter Details Date Type Department Care Team Description 08/15/2016 Lab Visit [facility] [address] Acquired hypothyroidism [address] [place], [place] [address] Social History Tobacco Use Types Packs/Day Years Used Date Smoking Tobacco: Never Sex Assigned at Date Recorded Not on file documented as of this encounter Progress Notes Ayad Damon MD - 08/18/2016 1:08 PM DESKTOP MANAGER Quick Note: Dear Debra, Your latest thyroid labs are within normal range. Please continue your current levothyroxine dose. Please do not hesitate to contact our office should you have any questions or concerns. All the best, Dr. Damon TOP MANAGER documented in this encounter Plan of Treatment Not on filedocumented as of this encounter Procedures Procedure Name Priority Date/Time Associated Diagnosis Comme nts THYROID STIMULATING Routine 08/15/2016 1:03 Resul ts for this HORMONE PM DESKTOP MANAGER procedure are i n the results section. FREE T4 Routine 08/15/2016 1:03 Acquired Results for this PM DESKTOP MANAGER hypothyroidism procedure are in the results section. documented in this encounter Results Thyroid Stimulating Hormone (08/15/2016 1:03 PM DESKTOP MANAGER) P athologist Signature Thyroid 2.78 0.20 - PN SOFT Stimulating 4.50 Hormone uIU/mL Specimen Anatomical Collection Method Collection Time Receive d Time (Source) Location / / Volume Laterality 08/15/2016 1:03 PM 7 2:39 DESKTOP MANAGER PM DESKTOP MANAGER Narrative PN SOFT - 08/15/2016 3:37 PM DESKTOP MANAGER Performed at [address] [address] CLIA number [id number] Ayad Damon MD LAB_1 Performing Organization Address [facility] Phon e Number PN SOFT [address] [place] [address] Free T4 (08/15/2016 1:03 PM DESKTOP MANAGER) athologist Signature Thyroxine, Free 0.9 0.7 - 1.5 PN SOFT ng/dL Specimen Anatomical Collection Method Collection Time Receive d Time (Source) Location / / Volume Laterality 08/15/2016 1:03 PM 7 2:39 DESKTOP MANAGER PM DESKTOP MANAGER Narrative PN SOFT - 08/15/2016 3:37 PM DESKTOP MANAGER Performed at [address] [address] CLIA number [id number] Ayad Damon MD LAB_1 Performing Organization Address [facility] Phon e Number PN SOFT [address] [place] [address] documented in this encounter Visit Diagnoses Diagnosis Acquired hypothyroidism (HRC) Unspecified hypothyroidism documented in this encounter Care Teams Hotel Server Relationship Specialty Start Date End Date Tesfaye Raya MD PCP - General Family Practice 05/29/16 [address] [place] [address] documented as of this encounter
--- OUTSIDE RECORDS SUMMARY | 2022-05-30 13:56 | XMS_ITS | Clinical Summary ---
:1970 Author Organization [employer] Address [address] [place] [address] Care Team Providers Name Role Phone Tesfaye Raya MD Primary Care Provider [phone] Source Comments You are receiving this document as you are listed as the primary care provider,follow-up provider, or the patient has been referred to you for consultation.This is in compliance with the Medicare and Medicaid EHR Incentive Program,which states Providers who transition their patient to another setting of careor provider of care or refers their patient to another provider of care shouldprovide summarycare record for each transition of care or referral. [facility] [employer] [facility] Allergies No known active allergies Medications Medication Sig Dispensed Refills Start Date End Date Status atorvastatin (LIPITOR) 0 03/04/2016 Active 40 MG tabletIndications: Hypothyroidism (acquired) (HRC), Abnormal TSH fludrocortisone 0 05/08/2016 Act laverne (FLORINEF) 0.1 MG tabletIndications: Hypothyroidism (acquired) (HRC), Abnormal TSH levothyroxine 0 05/15/2016 Activ e (SYNTHROID) 100 MCG tabletIndications: Hypothyroidism (acquired) (HRC), Abnormal TSH lithium carbonate TAKE 3-4 TABLETS 2 05/08/2016 Active (LITHOBID) 300 MG BY MOUTH NIGHTLY extended release AT BEDTIME tabletIndications: Hypothyroidism (acquired) (HRC), Abnormal TSH sertraline (ZOLOFT) 100 Take 100 mg by 2 05/01/2016 Active MG tabletIndications: mouth daily. Hypothyroidism (acquired) (HRC), Abnormal TSH traZODone (DESYREL) 50 Take 50 mg by 3 05/08/2016 Active MG tabletIndications: mouth daily at Hypothyroidism bedtime. (acquired) (HRC), Abnormal TSH Social History Tobacco Use Types Packs/Day Years Used Date Smoking Tobacco: Never Sex Assigned at Date Recorded Not on file Last Filed Vital Signs Vital Sign Reading [...] Mass Index 32.93 05/29/2016 1:46 PM CDT Plan of Treatment Health Maintenance Due Date Last Done Comments Cervical Cancer Screening 1970 Due Colon Cancer Screening Plan 1970 Due Hep C Screening (Preventive 1970 Services) HepB (1) 1970 COVID-19 Vaccine (#1) 05/23/1971 HIV Screening (Preventive 1986 Services) Adult Preventive Visit 1988 Mammogram 03/01/2011 03/01/2010 Cholesterol 11/22/2015 Zoster/Shingles (1 of 2) 2020 DTaP/Tdap/Td (2 - Tdap) 03/06/2021 03/06/2011, 06/26/2001 Influenza (#1) 2022 04/26/2020, 03/30/2020, 04/02/2019, Additional history exists HepA Aged Out No longer eligib le based on patient 's age to complete this topic Hib Aged Out No longer eligib le based on patient 's age to complete this topic IPV (Polio) Aged Out No longer eligib le based on patient 's age to complete this topic MCV4 Aged Out No longer eligib le based on patient 's age to complete this topic Pneumococcal Aged Out No longer eligib le based on patient 's age to complete this topic Insurance Payer Benefit Plan / Subscriber ID Effective Phone Address T [facility] Group Dates PREFERREDONE PREFERREDONE [id number] 2019-Pres [phone] OPEN ACCESS [facility] [phone] [address] [id number] Debra Dias Personal/Famil Self 1970 [phone] [id number]Home) [place] [address] Care Teams Supervisor Uranium Processing Relationship Specialty Start Date End Date Tesfaye Raya MD PCP - General Family Practice 05/29/16 [address] [address] [address]
[2022-05-30 14:00] VITALS: BP 112/87; PULSE 81; RESP 18; O2SAT 95
[2022-05-30] MEDS: 0.9 % SODIUM CHLORIDE 1000 ml 1,000 ML IV (14:15)
[2022-05-30 14:49] LABS: Chloride* 106 mmol/L (96-114); Potassium* 4.4 mmol/L (3.6-5.1); Sodium* 139 mmol/L (135-149)
[2022-05-30 14:52] LABS: Carbon Dioxide* 27 mmol/L (20-32); Est. Creatinine Clearance* 57.47; Estimated Glomerular Filt Rate 68 ml/min
[2022-05-30 14:53] LABS: Blood Urea Nitrogen* 12 mg/dL (7-30); Calcium* 9.2 mg/dL (8.4-10.6); Glucose* 80 mg/dL (60-115)
[2022-05-30 14:54] LABS: D Dimer Quantitative* 0.33 ug/ml (0.00-0.50)
[2022-05-30] MEDS: KETOROLAC 15 MG/ML inj IVP (15:00)
== END 2022-05-30 15:44 | disposition home or self-care (01) ==
PROVIDERS: Emergency Provider Family Medicine
DX: R07.9 Chest pain, unspecified (principal)
CPT/HCPCS: 36415; 71046; 80048; 85379; 93005; 96374; 99284; 99285; J1885; J7030

== ENCOUNTER 2023-04-28 19:29 | Emergency (ER) | payer BC, SELFPAY ==
[2023-04-28 19:38] VITALS: BP 120/75; PULSE 79; RESP 18; TEMP 36.4; O2SAT 98; BMI 39.0
--- NOTE | 2023-04-28 20:26 | ED.GENADULT ---
HPI - General Adult General Chief complaint: Extremity Pain/Injury, Lower Stated complaint: L leg pain Time Seen by Provider: 04/28/23 20:26 History of Present Illness HPI narrative: L leg has been hurting for about 1 week, denies any injury only change is it started hurting after a flu shot. mostly the upper leg. denies radiation of pain, hurts worse with movement, will have not pain and then the pain will come on suddenly while walking. denies any weakness or other symptoms in the leg. hx of a stroke 2014 with aphasia. 52-year-old woman presenting to the emergency department with complaint of intermittent left hip area pain. This seems to been escalating over a week which is really got bad over this last couple of days. She does not describe getting the flu shot in this area but did have that prior to this beginning. Does have a history of a stroke about 8 years ago affecting the right side of her body but not somewhat her right lower leg. She says she will take some steps here now maybe did 15 - 20 steps in all a sudden does have tremendous pain. Seems to hurt less now at rest. Related Data Home Medications Medication Instructions Recorded Confirmed levothyroxine 100 mcg tablet 100 mcg PO DAILY 03/26/22 04/28/23 loratadine 10 mg tablet 10 mg PO QDAY 03/26/22 04/28/23 sertraline 100 mg tablet 100 mg PO DAILY 03/26/22 04/28/23 sertraline 25 mg tablet 25 mg PO QDAY 03/26/22 01/29/23 trazodone 50 mg tablet 50 mg PO QDAY 03/26/22 01/29/23 diet pills 05/30/22 01/29/23 quetiapine 50 mg tablet,extended ea PO 08/15/22 01/29/23 release 24 hr trazodone 100 mg tablet 100 mg PO 08/15/22 01/29/23 levothyroxine 75 mcg tablet 75 mcg PO DAILY 01/29/23 01/29/23 modafinil 200 mg tablet 200 mg PO BID 01/29/23 04/28/23 quetiapine 150 mg tablet,extended 150 mg PO QPM 01/29/23 01/29/23 release 24 hr Allergies Allergy/AdvReac Type Severity Reaction Status Date / Time No Known Allergies Allergy Unknown Verified 01/29/23 13:58 Review of Systems Status of ROS: Reports: 6 or more systems reviewed and unremarkable except as noted in History and below [facility] Medical History Sore throat ?J02.9 - Acute pharyngitis, unspecified (ICD-10) Social History Smoking Status: Never smoker Do you use any of these nicotine containing products: None Second hand tobacco smoke exposure: No How often do you have a drink containing alcohol: never AUDIT-C Alcohol total score: 0 Non-prescribed substance use: denies use Exam Narrative: Exam Narrative: Pleasant. Does have some degree of expressive aphasia and indeed as described is little blunt in communication. She transitions a little hesitantly. Prior to this though palpation over the left greater trochanter definitely elicits reproduction of pain as she cries out. This extends along the IT band to the insertion above the knee laterally on the left. There was some question of some pain at time of triage to palpation around her ankle on that same side which I am unable to reproduce at this time. I do not appreciate pain in the calf. Negative Homans. She does not have reproducible pain in the SI joint the starts to get a little sore lower left buttock to palpation. Const: Vital Signs, click to edit/add: Vital Signs - 24 hr 04/28/23 19:38 Temperature 97.5 F L Pulse Rate [Pulse Oximeter] 79 Respiratory Rate 18 Blood Pressure [Le ft Upper Arm] 120/75 Pulse Oximetry 98 Oxygen Delivery Me thod Room Air Documenting provider has reviewed patient's vital signs: yes Course Vital Signs Vital signs: Initial Vital Signs Temperature 97.5 F L 04/28/23 19:38 Temperature Source Temporal Artery Scan 04/28/23 19:38 Pulse Rate 79 04/28/23 19:38 Respiratory Rate 18 04/28/23 19:38 Blood Pressure 120/75 04/28/23 19:38 Blood Pressure Mean 90 04/28/23 19:38 Blood Pressure Position Sitting 04/28/23 19:38 Pulse Oximetry 98 04/28/23 19:38 Oxygen Delivery Method Room Air 04/28/23 19:38 Vital Signs Temperature 97.5 F L 04/28/23 19:38 Pulse Rate 79 04/28/23 19:38 Respiratory Rate 18 04/28/23 19:38 Blood Pressure 120/75 04/28/23 19:38 Pulse Oximetry 98 04/28/23 19:38 Oxygen Delivery Method Room Air 04/28/23 19:38 Temperature 97.5 F L 04/28/23 19:38 Pulse Rate 79 04/28/23 19:38 Respiratory Rate 18 04/28/23 19:38 Blood Pressure 120/75 04/28/23 19:38 Pulse Oximetry 98 04/28/23 19:38 Oxygen Delivery Method Room Air 04/28/23 19:38 Medical Decision Making MDM Narrative Medical decision making narrative: This would seem to be greater trochanteric bursitis or IT band syndrome given location and clear reproducibility of her pain. I do not know if she has been compensating somewhat due to right-sided issue but apparently in the legs at least there is not at least historically stroke-related deficit. Will check though for any bony abnormality that might be contributing with pelvis/hip x-ray. Ice pack As expected, imaging of left hip and pelvis by my read looks unremarkable for bony abnormality. Medical Records Medical records reviewed: Yes I reviewed the patient's medical records Discharge Plan Discharge Clinical Impression: Greater trochanteric bursitis of left hip, Iliotibial band syndrome Patient Disposition: Home w/ Parent or Adult Condition: Stable Additional Instructions: I do think that icing is helpful. I like those screw top ice bags myself. Ice sore area 2-3 times daily over the next few days. Can take over the next 5 days or so 600 mg of ibuprofen 3 times a day or up to 500 mg naproxen 2 times daily. Continuing this course of treatment you probably should take it with a little bit of food at least. See handouts on diagnoses as above. You may want to schedule follow-up with your primary care provider for a week from now to consider next steps in treatment/care. This may also include physical therapy. I will call you if Radiology has anything more to say about your x-ray. Prescriptions: No Action levothyroxine 100 mcg tablet 100 mcg PO DAILY sertraline 100 mg tablet 100 mg PO DAILY trazodone 50 mg tablet 50 mg PO QDAY sertraline 25 mg tablet 25 mg PO QDAY loratadine 10 mg tablet 10 mg PO QDAY quetiapine 50 mg tablet extended release 24 hr PO Patient Comments: TAKE 1 TABLET BY MOUTH EVERY DAY trazodone 100 mg tablet 100 mg PO modafinil 200 mg tablet 200 mg PO BID quetiapine 150 mg tablet extended release 24 hr 150 mg PO QPM levothyroxine 75 mcg tablet 75 mcg PO DAILY diet pills Patient Comments: Pt unable to recall name or strength of diet pills. Follow Up/Referrals: Kelly So CNP [Primary Care Provider] - Stand Alone Forms: [employer] Info Instructions
--- NOTE | 2023-04-28 20:38 | CRLHL7_ITS ---
For Patients: As a result of the Cures Act, medical imaging exams and procedure reports are released immediately into your electronic medical record. You may view this report before your referring provider. If you have questions, please contact your health care provider. INDICATION: Greater trochanter pelvic hip pain - TECHNIQUE: Pelvis radiograph, Hip radiograph 3 views left COMPARISON: None FINDINGS: Bone: No acute fractures or aggressive bone lesions are identified. Joint: The hip joints are unremarkable. The visualized sacroiliac joints are unremarkable in appearance. The pubic symphysis is normal in appearance. Soft tissue: Unremarkable. An IUD seen in the midline pelvis. No radiopaque foreign bodies are seen. IMPRESSIONS: 1. No acute osseous injuries or abnormalities are noted. 2. Bursitis cannot be assessed by radiography and better evaluated by MRI. Dictated by Codey Zapien MD @ 04/28/2023 9:29:31 PM Dictated by: Codey Zapien MD @ 04/28/2023 21:29:38 (Electronically Signed)
--- OUTSIDE RECORDS SUMMARY | 2023-04-28 21:10 | XMS_ITS | Continuity of Care Document ---
Author Name Unknown Organization [facility] Address [address] [address] [place] [address] Phone Care Team Providers Care Carpenter Supervisor Name Role Phone Cooper Walker MD Unavailable Allergies, Adverse Reactions, Alerts Substance Reaction Status Criticality No Known Allergies Active No Inform ation Medications Medication Instructions Dosage Effective Dates (start - stop) Status Comments Claritin 10 mg tablet take 1 tablet by oral route every day 10 MG - Active levothyroxine 75 mcg tablet take 1 tablet by oral route every day 75 MCG - Active lithium carbonate 300 mg tablet take 4 Tablet by oral route every evening 1200 MG - Active aspirin 325 mg tablet take 1 tablet by oral route every day 325 MG - Active Fish Oil 360 mg-1,200 mg capsule,delayed release take 1 by Oral route every day - Active Vitamin D3 2,000 unit tablet take 1 Tablet by Oral route every day 1 Tablet - Active sertraline 100 mg tablet take 2 Tablet by oral route every day 200 MG - Active atorvastatin 40 mg tablet take 1 tablet by oral route every day 40 MG - Active fludrocortisone 0.1 mg tablet take 1 tablet by oral route 2 times every day 0.1 MG - Active fluticasone 50 mcg/actuation nasal spray,suspension spray 1 spray by intranasal route every day in each nostril - Active TRAZODONE HCL (unknown strength) take 1 tablet by oral route every day at bedtime Not Available - Active sennosides 8.6 mg tablet take 4 tablet by oral route every evening 4 tablet - Active Procedures Procedure Date Offic/outpt E&m Estab Low-mod 6 Colonoscopy Flex; Dx (sep Pro) 16 Ugi Endo; W/bx 1/mx Level Iv-surg Path Gross/micro 16 Offic/outpt E&m New Mod-hi Routine Serum Collection Bld Ct; Hg/pltlt Ct Auto/compl 15 Hepatic Function Panel Lipase Advance Directives Directive Yes / No Effective Date File Name No Information Encounters Encounter Description Practice Location Reason(s) For Visit Diagnoses Date Provider Providers Copied on Encounter Offic/outpt E&m Estab Low-mod [facility], [address] [address], [place], [place], [id number], [place] tel:[phone] [facility] GI Symptoms or Concerns (chief complaint) Constipation, unspecifiedDietary counseling and surveillance 6 Aaron Gamboa. [facility] [address], [place], [place], [id number] , [place]. tel:[phone] Referring Provider: Referral Self. [facility], [address] [address], [place], [place], [id number], [place] tel:[phone] [facility] Loss of weightConstipation , unspecified constipation typeLoss of weightConstipation , unspecifiedAbnorma l weight loss 6 Aaron Gamboa. [address] [facility] [address], [place], [place], [id number] , [place]. tel:[phone] Referring Provider: Tesfaye Hester, [address] [place], [address]. tel:[phone] Offic/outpt E&m [facility], [address] [address], [facility] [facility] [place] [place], [id number], [place] tel:[phone] [facility] GI Symptoms or Concerns (chief complaint) Loss of weightConstipation , unspecified constipation typeAbdominal pain, epigastricDietary counseling and surveillance 5 Aaron Gamboa. [address] [facility], [place], [place], [id number] , [place]. tel:[phone] Referring Provider: Tesfaye Hester, [address] [place], [address]. tel:[phone] Family History Family Member Type Diagnosis Age At Onset Brother Problem (finding) hypertension Sister Problem (finding) 2 Sister Problem (finding) Alive and well Sister Problem (finding) hypertension Son Problem (finding) autism Mother Problem (finding) geoff ya cob disease (Cause Of ) 77 Father Problem (finding) 77 Sister Problem (finding) Cancer, unknown 2 Mother Problem (finding) alcoholism Father Problem (finding) Myocardial infarction ( Cause Of ) 60 Immunizations Vaccine Date Status Comments Influenza virus vaccine, inj ectable, quadrivalent, split virus, preservative free, 3 years or older Fluarix Quad administered Source: Other Pro vider Payers Payer name Insurance type Covered libertarian ID Authorkary poole(s) [facility] [id number] Social History Type Description Quantity Date Captured Comments Alcohol Use Details No Caffeine Use Details Unknown Tobacco Use Status Never smoked tobacco 2015 Smoking Status Never smoker Non-Smoking Tobacco Use Details : No Details Available : No Details Available Sex Female Vital Signs Date / Time: Height Weight BMI Pulse Rate Blood Pressure Temperature Respiratory Rate Body Surface Area Head Circumference Head Circ. Percentile Wt./Valerio. Percentile BMI percentile Pulse Ox Inhaled Ox 1:46 PM 64.00 in 87.543 kg (193.00 lbs) 33.1 3 kg/m eter (2) 72 /min 112/70 mm[Hg] Chief Complaint And Reason For Visit From encounter dated '10/31/2015 14:00'. GI Symptoms or Concerns (chief complaint). Description: Ms. Dias is here for followup for constipation. She is a complicated 44-year-old female who had a stroke in the fall of 2014, was hospitalized at [facility] and stayed there for about a month. She had about 25 to 30-pound weight loss. Her weight has been stable since we saw her in June. She has had some worsening constipation and vague upper abdominal pain. For that reason, we performed colonoscopy and upper GI endoscopy in August. Her colonoscopy was normal. Her upper GI endoscopy was normal. Biopsies demonstrated normal small bowel tissue with no evidence for celiac sprue. Her constipation has resolved now as she takes MiraLax two doses on a daily basis. There have been no other new medical problems. She has no other abdominalpain. She has no other GI-related concerns at this time. There is no family history of any gastrointestinal malignancy. There have been no other new medical problems. She is hoping to get back to work in January. 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 Her G-tube is out. Reason For Referral Reason For Referral No Information Plan Of Treatment Date Type Action Status Goal Lifestyle education regardin g diet completed Goal Lifestyle education regardin g diet completed History Of Present Illness Encounter Date Complaint History Of Prese nt Illness GI Symptoms or Concerns The symp toms began month ago and generally lasts month. The symptoms are reported as being moderate. The symptoms occur randomly. Ms. Dias is here for followup for constipation. She is a complicated 44-year-old female who had a stroke in the fall of 2014, was hospitalized at [facility] and stayed there for about a month. She had about 25 to 30-pound weight loss. Her weight has been stable since we saw her in June. She has had some worsening constipation and vague upper abdominal pain. For that reason, we performed colonoscopy and upper GI endoscopy in August. Her colonoscopy was normal. Her upper GI endoscopy was normal. Biopsies demonstrated normal small bowel tissue with no evidence for celiac sprue. Her constipation has resolved now as she takes MiraLax two doses on a daily basis. There have been no other new medical problems. She has no other abdominal pain. She has no other GI-related concerns at this time. There is no family history of any gastrointestinal maligna GI Symptoms or Concerns The symp toms began month ago and generally lasts month. The symptoms are reported as being mild. The symptoms occur randomly. Ms. Dias is here with her for issues related to vague upper abdominal burning, worsening constipation, and 25-pound weight loss over the last three months. She is a complicated 44-year-old white female who had a stroke about three months ago, and was hospitalized at [facility] in [place] for about a month total. She had a G-tube placed. She has recovered with the exception of some mild expressive aphasia and some mild weakness in her right leg. She has had about a 25-pound weight loss since the stroke, which she attributes to decreased caloric intake. She has had some vague epigastric burning pain, which has improved recently for unclear reasons. In addition, she has had constipation, which has worsened. She has had some baseline constipation much of her life, but now she is having difficulty where she is having trouble going on a wee Functional Status Date Functional Assessmen t No Information Instructions Date Instruction Additional Infor mattriston Call me if questions or concerns arise in the interim-ask for Little. Related to Constipation, unspecified Lifestyle education regarding di et Related to Dietary counseling and surveillance Continue the Miralax daily that you are taking Related to Constipation, unspecified Colon Cancer Prevention Related to Loss of weight Call me if questions or concerns arise in the interim-ask for Little Related to Loss of weight Miralax 17 g PO qday or every other day-liberal daily water Related to Loss of weight Lifestyle education regarding di et Related to Dietary counseling and surveillance Colonoscopy Assessments Type Assessment Date assessment Constipation, unspecified assessment Dietary counseling and surveilla nce impression Ms. Dias's consti pation had resolved taking the MiraLax on a daily basis. Her endoscopy and colonoscopy were unremarkable. I told she should have another colonoscopy at age 54. She will contact us by telephone or come for another office visit if she develops GI-related symptoms in the future.The patient understands the rationale for these recommendations and is agreeable to proceed. The patient has no other questions or concerns at this time.Thank you for allowing me to participate in the care of your patient. Please contact me if you have any further questions. Mental Status Date Cognitive Assessment Orientation - [place] ed to time, place, person, situation. Patient Care Teams Name Effective Dates (start - stop) Status Members No Information
== END 2023-04-28 21:41 | disposition home or self-care (01) ==
PROVIDERS: Emergency Provider Family Medicine; PCP Nurse Practitioner Family
DX: M70.62 Trochanteric bursitis, left hip (principal); M76.32 Iliotibial band syndrome, left leg
CPT/HCPCS: 73502; 99283; 99284

== ENCOUNTER 2024-05-15 12:36 | Emergency (ER) | payer BC, SELFPAY ==
[2024-05-15] VITALS (16 sets, daily range): BP systolic 103–113; BP diastolic 69–83; PULSE 61–80; RESP 16–18; O2SAT 92–96; BMI 35.3
--- NOTE | 2024-05-15 12:43 | CRLHL7_ITS ---
For Patients: As a result of the Century Cures Act, medical imaging exams and procedure reports are released immediately into your electronic medical record. You may view this report before your referring provider. If you have questions, please contact your health care provider. INDICATION: Syncope TECHNIQUE: Chest 1 views. COMPARISON: Chest radiograph 05/30/2022. FINDINGS: Cardiovasculature and mediastinum: Heart size is normal. Unremarkable mediastinum. Lungs and pleural spaces: Lungs are clear. No sign of infiltrate or mass. No sign of pleural effusion. No pneumothorax. Bones and soft tissues: No significant findings. IMPRESSION: No acute or significant findings. Dictated by Christine Ocampo MD @ 05/15/2024 2:01:15 PM (Electronically Signed)
[2024-05-15] MEDS: 0.9 % SODIUM CHLORIDE 500 ML 500 ML 1000 ML IV ×2 (13:06→13:07)
--- NOTE | 2024-05-15 13:11 | ED_ITS ---
HPI - Syncope General Date Seen: 05/15/24 Chief Complaint: Syncope/Fainted Stated Complaint: Syncopal Time Seen by Provider: 05/15/24 12:36 Source: patient Mode of arrival: ambulatory Limitations: no limitations History of Present Illness HPI narrative: Patient is a 53-year-old female presenting to emergency department for syncope. She states she had syncopal episode last night when she went to the bathroom. She states she was able to get to toilet without issue but when she stood back up she got lightheaded with tunnel vision and passed out. She is not think she hit her head. She was feeling well after that and then went to her primary care provider this morning due to syncopal episode and right eye swelling. She has been having right eye swelling and erythema for the past 3 days. She has not been placed on any antibiotics yet. Has no pain with movement of the eye. Denies any changes in her vision but does state the I does hurt. I spoke to her primary care provider who called saying that she was coming in by ambulance. When she got to her provider's office she was very pale and was hypotensive. They tried to do orthostatic blood pressures but she had another syncopal episode just while sitting down. Her pressures were 70s over 40s at that time. EMS arrived and they state for them her blood pressures been 110s over 70s. She states she is feeling much better and is no longer feeling symptomatic. She does have residual aphasia from a previous stroke. Denies chest pain, shortness of breath,dizziness, weakness, numbness, headache, abdominal pain. Related Data Home Medications ?Medication ?Instructions ?Recorded ?Confirmed levothyroxine 100 mcg tablet 100 mcg PO DAILY 03/26/22 05/15/24 loratadine 10 mg tablet 10 mg PO QDAY 03/26/22 05/15/24 sertraline 100 mg tablet 100 mg PO DAILY 03/26/22 05/15/24 sertraline 25 mg tablet 25 mg PO QDAY 03/26/22 05/15/24 trazodone 50 mg tablet 50 mg PO QDAY 03/26/22 05/15/24 trazodone 100 mg tablet 100 mg PO 08/15/22 05/15/24 levothyroxine 75 mcg tablet 75 mcg PO DAILY 01/29/23 05/15/24 modafinil 200 mg tablet 200 mg PO BID 01/29/23 05/15/24 Previous Rx's ?Medication ?Instructions ?Recorded sulfamethoxazole 800 1 tab PO BID #14 tabs 05/15/24 mg-trimethoprim 160 mg tablet (Bactrim DS) valacyclovir 1 gram tablet 1,000 mg PO BID #60 tabs 05/15/24 (Valtrex) Allergies Allergy/AdvReac Type Severity Reaction Status Date / Time No Known Allergies Allergy Unknown Verified 05/15/24 10:38 Review of Systems Status of ROS: Reports: 10 or more systems reviewed and unremarkable except as noted in History and below [facility] Medical History Sore throat ?J02.9 - Acute pharyngitis, unspecified (ICD-10) Social History Smoking Status: Never smoker Do you use any of these nicotine containing products: None Second hand tobacco smoke exposure: No How often do you have a drink containing alcohol: never AUDIT-C Alcohol total score: 0 Non-prescribed substance use: denies use Exam Narrative: Exam Narrative: Const: Well-nourished, Well-developed, in no distress Eyes: PERRL, erythematous right conjunctiva, swollen right eyelid, erythema around the right eye HENT: Atraumatic external nose and ears. Moist mucous membranes. Neck: Symmetric, trachea midline, No thyromegaly. CVS: RRR, No murmurs or gallops. Peripheral pulses 2+ and equal in all extremities RESP: Unlabored respiratory effort. Clear to auscultation bilaterally. GI: Nontender/Nondistended, No rebound or guarding. MSK:Extremities w/o deformity, Normal Active ROM Skin: Warm, Dry. No rashes or lesions. Neuro: Normal Muscle tone, Cranial nerves 2-12 grossly intact, normal [id number]-[id number], normal [id number]-ed-[id number], normal strength 5/5 upper lower extremities bilaterally, normal sensation upper and lower extremities bilaterally, normal rapid alternating movements. Psych: Awake, Alert, & Oriented x3. Appropriate mood and affect. Const: Vital Signs, click to edit/add: Vital Signs - 24 hr 05/15/24 12:50 05/15/24 12:51 05/15/24 12:51 Pulse Rate 73 Pulse Rate [Left P ulse Oximeter] 72 Respiratory Rate 18 Blood Pressure 103/69 Blood Pressure [Ri ght Upper Arm] 103/69 Blood Pressure [or thostatic lying Le ft Arm] Blood Pressure [or thostatic sitting] Blood Pressure [or thostatic standing ] Pulse Oximetry 92 92 Oxygen Delivery Me thod Room Air 05/15/24 13:00 05/15/24 13:15 05/15/24 13:30 Pulse Rate 68 68 68 Pulse Rate [Left P ulse Oximeter] Respiratory Rate Blood Pressure Blood Pressure [Ri ght Upper Arm] Blood Pressure [or thostatic lying Le ft Arm] Blood Pressure [or thostatic sitting] Blood Pressure [or thostatic standing ] Pulse Oximetry 93 93 95 Oxygen Delivery Me thod 05/15/24 13:45 05/15/24 14:05 05/15/24 14:50 Pulse Rate 73 64 74 Pulse Rate [Left P ulse Oximeter] Respiratory Rate 16 Blood Pressure Blood Pressure [Ri ght Upper Arm] Blood Pressure [or thostatic lying Le ft Arm] Blood Pressure [or thostatic sitting] Blood Pressure [or thostatic standing ] Pulse Oximetry 94 96 94 Oxygen Delivery Me thod 05/15/24 14:58 05/15/24 15:00 05/15/24 15:15 Pulse Rate 61 64 67 Pulse Rate [Left P ulse Oximeter] Respiratory Rate Blood Pressure 108/83 Blood Pressure [Ri ght Upper Arm] Blood Pressure [or thostatic lying Le ft Arm] Blood Pressure [or thostatic sitting] Blood Pressure [or thostatic standing ] Pulse Oximetry 95 95 94 Oxygen Delivery Me thod 05/15/24 15:21 05/15/24 15:22 05/15/24 15:24 Pulse Rate 80 71 Pulse Rate [Left P ulse Oximeter] Respiratory Rate Blood Pressure 109/83 113/82 109/82 Blood Pressure [Ri ght Upper Arm] Blood Pressure [or thostatic lying Le ft Arm] Blood Pressure [or thostatic sitting] Blood Pressure [or thostatic standing ] Pulse Oximetry 95 96 Oxygen Delivery Me thod 05/15/24 15:30 05/15/24 15:32 Pulse Rate 63 Pulse Rate [Left P ulse Oximeter] Respiratory Rate 16 Blood Pressure Blood Pressure [Ri ght Upper Arm] Blood Pressure [or thostatic lying Le ft Arm] 109/83 Blood Pressure [or thostatic sitting] 113/82 Blood Pressure [or thostatic standing ] 109/82 Pulse Oximetry 94 Oxygen Delivery Me thod Course Vital Signs Vital signs: Initial Vital Signs Blood Pressure 103/69 05/15/24 12:50 Blood Pressure Mean 80 05/15/24 12:50 Vital Signs Blood Pressure 103/69 05/15/24 12:50 Pulse Rate 63 05/15/24 15:30 Respiratory Rate 16 05/15/24 15:30 Blood Pressure 109/83 05/15/24 15:32 Pulse Oximetry 94 05/15/24 15:30 Oxygen Delivery Method Room Air 05/15/24 12:51 Medications Administered Medications: Discontinued Medications Generic Name Dose Route Start Last Admin Trade Name Adrianq PRN Reason Stop Dose Admin Sodium Chloride 500 mls @ 1,000 mls/hr 05/15/24 12:43 05/15/24 13:51 0.9 % Sodium Chloride 500 Ml IV 05/15/24 13:12 Infused .Q30M ONE Infusion Sodium Chloride 500 mls @ 1,000 mls/hr 05/15/24 12:43 05/15/24 13:51 0.9 % Sodium Chloride 500 Ml IV 05/15/24 13:12 Infused .Q30M ONE Infusion MDM - Syncope MDM Narrative Medical decision making narrative: Patient is a 53-year-old female presenting to emergency department for syncope. Her symptoms have since resolved. She does have residual speech deficits but no other neurological abnormalities at this time. His syncope could be from several different causes including dehydration. Cardiac cause seems unlikely but I will do an EKG and troponin. Could also be related to a PE so D-dimer was ordered. Will also do a chest x-ray to look for signs of pneumothorax, pneumonia, widened mediastinum. CBC, BMP, urinalysis, COVID/flu, magnesium also ordered. Patient given 1 L of fluids. Will do a CT scan of the head. Will also do CT scan with IV contrast of the orbits to rule out orbital cellulitis. Lab work returned showing no concerning abnormalities. EKG and troponin showed no concerning findings. Patient is feeling much better after the fluids. COVID/flu/RSV is negative. D-dimer is elevated though so I will do a PE study. Chest x-ray reviewed by myself and the radiologist shows no acute concerning abnormalities. CT scan of the head shows greater than expected cerebral volume loss but this is likely consistent with her previous stroke. Orbital CT shows no acute concerning abnormalities. Most likely showing preseptal cellulitis. CT of the chest shows small bilateral pleural effusions. She is otherwise feeling well and orthostatic blood pressures showed no concerning findings. I believe her symptoms were most likely from dehydration or vasovagal. she will be discharged at this time. She is agreeable to this plan. Lab Data Labs: Lab Results 05/15/24 05/15/24 05/15/24 Range/Units 13:02 13:15 14:05 WBC 6.07 (4.50-11.00) K/uL RBC 4.32 (4.00-5.20) m/uL Hgb 13.0 (12.0-16.0) gm/dL Hct 39.3 (33.0-51.0) % MCV 91 (80-100) fL MCH 30 (26-34) pg MCHC 33 (32-36) gm/dL RDW Coeff of Enrike 12.2 (11.5-15.5) % Plt Count 190 (140-440) K/uL Neut % (Auto) 69.6 (42.0-72.0) % Lymph % (Auto) 16.6 L (20-44) % Jerome % (Auto) 11.5 H (0.0-11.0) % Eos % (Auto) 1.5 (0.0-7.0) % Baso % (Auto) 0.5 (0.0-3.0) % Neut # (Auto) 4.22 (1.7-7.0) K/uL Lymph # (Auto) 1.00 (0.90-2.90) K/uL Jerome # (Auto) 0.70 (0.00-0.90) K/UL Eos # (Auto) 0.09 (0.00-0.50) K/uL Baso # (Auto) 0.03 (0.00-0.30) K/uL Abs Immat Gran (auto) 0.02 (0.00-0.30) K/uL Imm/Tot Granulo (auto) 0.3 % D-Dimer Quant (PE/DVT) 0.59 H (0.00-0.50) ug/ml Sodium 136 (135-149) mmol/L Potassium 4.2 (3.6-5.1) mmol/L Chloride 103 (96-114) mmol/L Carbon Dioxide 24 (20-32) mmol/L Anion Gap 9 (7-15) mEq/L BUN 15 (7-30) mg/dL Creatinine 1.0 (0.5-1.5) mg/dL Estimated Creat Clear 58.54 Estimated GFR 67 ml/min Glucose 108 (60-115) mg/dL Calcium 9.8 (8.4-10.6) mg/dL Magnesium 2.2 (1.5-2.6) mg/dL Troponin I < 0.01 L (0.01-0.04) ng/mL Urine Color Yellow (Yellow) Urine Appearance Clear (Clear) Urine pH 6.5 (5.0-8.5) Ur Specific [place] 1.020 (1.000-1.030) Urine Protein Negative (Negative) Urine Glucose (UA) Negative (Negative) Urine Ketones Negative (Negative) Urine Blood Trace-intact A (Negative) Urine Nitrite Negative (Negative) Urine Bilirubin Negative (Negative) Urine Urobilinogen 0.2 (0.2-1.0) Ur Leukocyte Esterase 1+ A (Negative) Urine RBC 0-2 (0-2) Urine WBC 2-5 (0-5) Ur Squamous Epith Cells Few (None-Few) Urine Bacteria Few A (None) SARS-CoV-2 (PCR) Negative SARS-CoV-2 (Negative) Influenza Type A (PCR) Negative PCR FLU A (Negative) Influenza Type B (PCR) Negative PCR FLU B (Negative) Imaging Data Chest x-ray: Attestation: I have reviewed the pertinent imaging results. Radiologist's impression: No acute or significant findings. Dictated by Christine Ocampo MD @ 05/15/2024 2:01:[address] scan head: Attestation: I have reviewed the pertinent imaging results. Radiologist's impression: No acute intracranial abnormality. Mild cerebral volume loss, [id number]-right and greater than expected for age. Right periorbital soft tissue swelling. See separately dictated CT orbits for further details. Please note that all CT scans at this facility use dose modulation, iterative reconstruction, and/or weight-based dosing when appropriate to reduce radiation dose to as low as reasonably achievable. Dictated by Christine Ocampo MD @ 05/15/2024 3:23:[address] scan orbits: Attestation: I have reviewed the pertinent imaging results. Radiologist's impression: Right periorbital soft tissue swelling and enhancement, most compatible with periorbital cellulitis. No abscess or postseptal inflammation. Please note that all CT scans at this facility use dose modulation, iterative reconstruction, and/or weight-based dosing when appropriate to reduce radiation dose to as low as reasonably achievable. Dictated by Apolinar Palacio MD @ 05/15/2024 3:16:28 PM CTA chest: Attestation: I have reviewed the pertinent imaging results. Radiologist's impression: Small bilateral pleural effusions of unclear etiology. Please note that all CT scans at this facility use dose modulation, iterative reconstruction, and/or weight-based dosing when appropriate to reduce radiation dose to as low as reasonably achievable. Dictated by Ami Smith MD @ 05/15/2024 3:28:25 PM ECG Data Attestation: I personally reviewed and interpreted this ECG as follows: Prior ECG tracings: available for review Interpretation: Normal sinus rhythm with a rate of 69 beats per minute, normal intervals, normal axis, no ST or T-wave abnormalities. Appears similar previous EKG on file a previous EKG from earlier today. There is a PVC. Discharge Plan Discharge Clinical Impression: Periorbital cellulitis of right eye Syncopal episodes Qualifiers: Syncope type: unspecified Qualified Code(s): R55 - Syncope and collapse Patient Disposition: Home, Self-Care Condition: Improved Instructions: Syncope (ED), Periorbital Cellulitis (ED) Additional Instructions: Take the antibiotics as directed for your cellulitis your right eye. If you continue to have episodes of syncope return to emergency department for re- evaluation. Either way recommend following up with her primary care provider. Prescriptions: New sulfamethoxazole-trimethoprim [Bactrim DS] 800-160 mg tablet 1 tab PO BID Qty: 14 0RF No Action levothyroxine 100 mcg tablet 100 mcg PO DAILY sertraline 100 mg tablet 100 mg PO DAILY trazodone 50 mg tablet 50 mg PO QDAY sertraline 25 mg tablet 25 mg PO QDAY loratadine 10 mg tablet 10 mg PO QDAY trazodone 100 mg tablet 100 mg PO modafinil 200 mg tablet 200 mg PO BID levothyroxine 75 mcg tablet 75 mcg PO DAILY valacyclovir [Valtrex] 1 gram tablet 1,000 mg PO BID Qty: 60 0RF Follow Up/Referrals: Kelly So CNP [Nurse Practitioner] - Stand Alone Forms: MyHealth Info Instructions
--- OUTSIDE RECORDS SUMMARY | 2024-05-15 13:13 | XMS_ITS | Continuity of Care Document ---
Author Organization [facility] Address [address] [address] [place] [address] Phone Care Team Providers Care Machine Joint Cutter Name Role Phone Cooper Walker MD Unavailable Unavailable Allergies, Adverse Reactions, Alerts Substance Reaction [...] Copied on Encounter Offic/outpt E&m Estab Low-mod [facility], [address] [address], [place], [place], [id number], [place] tel:[phone] [facility] GI Symptoms or Concerns (chief complaint) Constipation, unspecifiedDietary counseling and surveillance 6 aAron Gamboa. [address] [facility] [address], [place], [place], [id number] , [place]. tel:[phone] Referring Provider: Referral Self, USE FOR SELF REFERRALS. [facility], [address] [address], [place], [id number], [place] tel:[phone] [facility] Loss of weightConstipation , unspecified constipation typeLoss of weightConstipation , unspecifiedAbnorma l weight loss 6 Aaron Gamboa. [address] [facility] [facility] [address], [place], [place], [id number] , [place]. tel:[phone] Referring Provider: Tesfaye Hester, [address] [place], [address]. tel:[phone] Offic/outpt E&m [facility], [address] [address], [facility] [place], [id number], [place] tel:[phone] [facility] GI Symptoms or Concerns (chief complaint) Loss of weightConstipation , unspecified constipation typeAbdominal pain, epigastricDietary counseling and surveillance 5 Aaron Gamboa. [address] [facility], [place], [place], [id number] , [place]. tel:[phone] Referring Provider: Tesfaye Hester, [address] [place], [address]. tel:[phone] Family History Family Member Type Diagnosis Age [...] vider Payers Payer name Insurance type Covered alliance party ID Authorlibertya tuyetjuan(s) hint [id number] Social History Type Description Quantity Date Captured [...] the fall of 2014, was hospitalized at [facility] and stayed there for about a month. [...] the fall of 2014, was hospitalized at [facility] and stayed there for about a month. [...] three months ago, and was hospitalized at [facility] in [place] for about a month total. She had [...] No Information Instructions Date Instruction Additional Infor claudia Call me if questions or concerns arise [...] counseling and surveilla nce impression Ms. Dias's osirisi pation had resolved taking the MiraLax on [...] Mental Status Date Cognitive Assessment Orientation - [place] ed to time, place, person, situation. Patient Care Teams Name Effective Dates (start - stop) Status Members No Information
[2024-05-15 13:14] LABS: Basophils Absolute Auto 0.03 K/uL (0.00-0.30); Basophils Percent Auto 0.5 % (0.0-3.0); Eosinophils Absolute Auto 0.09 K/uL (0.00-0.50); Eosinophils Percent Auto 1.5 % (0.0-7.0); Hematocrit 39.3 % (33.0-51.0); Immature Granulocytes Abs Auto 0.02 K/uL (0.00-0.30); Immature Granulocytes Pct Auto 0.3 %; Lymphocytes Percent Auto 16.6 % (20-44); Mean Corpuscular HGB Conc 33 gm/dL (32-36); Mean Corpuscular Hemoglobin 30 pg (26-34); Mean Corpuscular Volume 91 fL (80-100); Monocytes Percent Auto 11.5 % (0.0-11.0); Neutrophils Absolute Auto 4.22 K/uL (1.7-7.0); Neutrophils Percent Auto 69.6 % (42.0-72.0); Platelet Count* 190 K/uL (140-440); RDW Coefficient of Variation % 12.2 % (11.5-15.5); Red Blood Count 4.32 m/uL (4.00-5.20); White Blood Count* 6.07 K/uL (4.50-11.00)
--- OUTSIDE RECORDS SUMMARY | 2024-05-15 13:14 | XMS_ITS | Clinical Summary ---
Author Organization [facility] Address [place], [place] [address] Care Team Providers Care Fat Purification Worker Name Role Phone Tesfaye Raya MD Primary Care Provider Allergies Active Allergy Reactions Criticality Noted Date Comments Birch 12/29/2005 Cats (Fur, Dander, Saliva) 6 Eucalyptus Respiratory Distress Low 04/14/2015 Lactose 12/29/2005 Mold Extracts 12/29/2005 Medications Medication Sig Dispensed Refills Start Date End Date Status loratadine (CLARITIN) 10 mg tablet Take 10 mg by mouth once daily if needed for Allergy Symptoms. Active lactase (LACTAID) 3,000 unit tabletIndications: Lactose intolerance in adult Take 3 tablets by mouth 3 times daily with meals. 270 tablet 0 05/09/2015 Active aspirin 325 mg tabletIndications: Stroke (cerebrum) (HC),Stroke (cerebrum) (HC) Take 1 tablet by mouth once daily with a meal. 90 tablet 1 06/07/2015 Active Cholecalciferol, Vitamin D3, 2,000 unit tabletIndications: Vitamin D deficiency Take 1 tablet by mouth once daily. 90 tablet 3 06/07/2015 Active medication order composerIndication s:Sleep apnea, unspecified type Replacement CPAP mask and tubing 1 Units 02/10/2019 Active medication order composerIndication s:Sleep apnea, unspecified type Patient just needs the new hose, new headgear and new nose plug for her CPAP machine 1 Tube 02/21/2019 Active fluocinonide 0.05% topical (LIDEX) 0.05 % creamIndications:E czema, unspecified type Apply topically to affected area(s) 2 times daily. 60 g 3 11/23/2019 Active SEA-OMEGA 30 1,200 (144-216) mg capsuleIndications :Stroke (cerebrum) (HC) TAKE 2 CAPSULE BY MOUTH NIGHTLY AT BEDTIME 180 capsule 1 07/16/2020 Active metroNIDAZOLE 0.75 % creamIndications:V aginal cyst Apply topically to affected area(s) 3 times daily. 1 Tube 3 02/11/2021 Active modafiniL (PROVIGIL) 200 mg tablet 10/30/2022 Active fluticasone furoate (Flonase Sensimist) 27.5 mcg/actuation nasal spray Inhale 1 Pana to both nostrils once daily. Active ubidecarenone/jeannine min E mixed (COQ10 SG 100 ORAL) Take 200 mg by mouth once daily. Active MULTIVITAMIN ORAL Take 1 Tablet by mouth once daily. Active levonorgestrel (Mirena) 20 mcg/24 hours (8 yrs) 52 mg intrauterine device (IUD) Inject 1 Device intrauterine one time. 0 Active sertraline (ZOLOFT) 100 mg tabletIndications: Bipolar disorder, in partial remission, most recent episode depressed (HC) TAKE 2 TABLETS BY MOUTH ONCE DAILY. 180 Tablet 3 08/31/2023 Active risperiDONE (RisperDAL) 2 mg tabletIndications: Bipolar disorder, in partial remission, most recent episode depressed (HC) Take 1 Tablet (2 mg) by mouth two times daily. 180 Tablet 3 11/09/2023 Active semaglutide (Wegovy) 0.25 mg/0.5 mL subcutaneous penIndications:Cla ss 2 severe obesity with body mass index (BMI) of 35 to 39.9 with serious comorbidity (HC) Inject 0.25 mg subcutaneous once weekly. 2 mL 3 02/22/2024 Active testosterone 1%, 25 mg/2.5 g, (AndroGeL) topical gelIndications:Low libido Apply daily to clean dry intact skin of shoulder, upper arms or abdomen. 1/3 packet daily 30 Packet 1 02/22/2024 Active levothyroxine (SYNTHROID) 75 mcg tabletIndications: Hypothyroidism (acquired) Take 1 Tablet (75 mcg) by mouth once daily. 90 Tablet 3 02/22/2024 Active traZODone (DESYREL) 100 mg tabletIndications: Insomnia, idiopathic Take 2 Tablets (200 mg) by mouth at bedtime. 180 Tablet 3 02/22/2024 Active CPAPIndications:Ob structive sleep apnea of adult CPAP (E0601) machine for home use at pressure: 8cm , Choice of mask (A7030 or A7034) w/full face cushion (A7031) x1/mo, nasal cushion (A7032) x2/mo, or nasal pillows (A7033) x 2/mo; Length of Need: 99 months; Frequency of use: Daily 3 Each 3 04/11/2024 Active Hospital, Clinic, or Other Facility Administered Medication Ordered Dose Route Frequency Start Date End Date Status levonorgestrel (MIRENA) 20 mcg/24 hours (8 yrs) 52 mg intrauterine device (IUD) 1 DeviceIndications:Menorrhagia with regular cycle 1 Device IU Q 5 YEARS 02/18/2023 Active Active Problems Problem Noted Date Diagnosed Date Pap smear for cervical cancer screening 01/25/20 Overview (03/05/2023): 01/2023 NIL/HPV negative. Plan: Pap/HPV due 01/2028. Exercise-induced asthma 09/10/2021 Aphasia due to stroke 06/26/2015 Constipation 06/11/2015 Acute blood loss anemia 04/20/2015 Stroke , 04/10, s/p TPA and thrombectomy 04/14/20 Sleep apnea , (CPAP) 12/12/2014 Obesity, Class II, BMI 35-39.9 12/12/2014 Insomnia 09/21/2012 Vitamin D deficiency 08/08/2010 Routine health maintenance 08/02/2010 Overview (10/08/2023): Mammogram, 06/18 Colonoscopy 2016, recheck 10 years Hypothyroidism 12/21/2009 BIPOLAR DISORDER, Arnold Line/an tidepressants to be regulated by Dr. Marie only. 08/16/2006 Resolved Problems Problem Noted Date Diagnosed Date Resolved Date Adjustment disorder with mix ed disturbance of emotions and conduct 08/16/2006 09/21/2012 Unspecified personality disorder 08/16/2006 06/03/2015 Adjustment disorder with mix ed disturbance of emotions and conduct 08/16/2006 09/21/2012 DEPRESSION 02/06/2006 12/12/2014 Overview (02/06/2006): Multiple stressors Encounters Date Type Department Care Team Description 05/12/2024 Orders Only [facility] Scanner 1 scan: (1-Ord) INCOMING RECORDS-DIAGNOSTIC TEST, [facility], 05/12/2024 05/12/2024 Orders Only [facility] Scanner 1 scan: (1-Ord) INCOMING RECORDS-SLEEP STUDY, [facility], 05/12/2024 03/23/2024 Telephone [facility] [place] [address] [place] [phone] Carmen Lantigua MD DME Supply (CPAP supplies ) 03/07/2024 4:00 PM CDT Office Visit [facility] [place] [address] [place] [phone] Carmen Lantigua MD Sleep Follow-up 03/07/2024 Travel 02/29/[address] [address] Tesfaye Raya MD Prior Authorization (testosterone 1%, 25 mg/2.5 g, (AndroGeL) topical gel (DENIED)) 02/22/2024 4:15 PM CDT Office Visit [address] [address] Tesfaye Raya MD Physical (Non fasting) 02/22/2024 Travel 02/19/2024 Travel from Last 3 Months Immunizations Name Administration Dates Next Due AMB INFLUENZA, IIV4 (AGE=>6M OS) [facility] (Flu Clinic Only) 04/26/2020 COVID-19 vaccine (Moderna 100mcg/0.5mL) [facility]AY 02/11/2022,06/25/2021,11/09/2020, 0 21 Influenza, IIV3 (Age >=3 years) 06/02/2005,05/22 Influenza, IIV4 04/24/2022, 9,07/07/2016,04/26/20 15 Influenza,CCIIV4 PRESERV FREE 04/16/2023, 020 Td (Age >=7 Years) 06/26/2001 Tdap 12/23/2022,03/06/2011 Zoster (Shingrix-RZV, recombinant) 09/30/2022, Family History Medical History Relation Name Comments Cancer-colon Brother 1 Hypertension Brother 2 Heart Disease Father SC at age 42-d eceased at age 61 Cancer-breast Maternal Aunt age ? 50's Hypertension Mother Cancer-ovarian No Family History Relation Name Status Comments Brother 1 Brother 2 Father Maternal Aunt Mother Social History Tobacco Use Types Packs/Day Years Used Date Smoking Tobacco: Never Passive Smoke Exposure: Past Smokeless Tobacco: Never Tobacco Cessation:Counseling Given: Not Answered Alcohol Use Standard Drinks/Week Comments Not Currently 0 (1 standard drink = 0.6 oz pur e alcohol) Rarely PHQ-2 Answer Date Recorded PHQ-2 TOTAL SCORE 0 02/22/2024 Social Connections Answer Date Recorded Frequency of Communication with Friends and Fami ly 0 02/19/2024 Financial Resource Strain Answer Date R ecorded Difficulty of Paying Living Expenses 3 02/19/2024 Difficulty of Paying Living Expenses Not on file 02/19/2024 Food Insecurity Answer Date Recorded Worried About Running Out of Food in the Last Ye ar 1 02/19/2024 Transportation Needs Answer Date Record ed Lack of Transportation (Medical) 1 02/19/2024 Housing Stability Answer Date Recorded Unable to Pay for Housing in the Last Year 1 02/19/2024 Sex and Gender Information Value Date Recorded Sex Assigned at Not on file Gender Identity Not on file Sexual Orientation Not on file Obstetrics History Para Term AB IAB SAB Ectopic Multiple Livin g Live Births 2 2 2 2 2 Date Outcome GA Total Labor Labor/2nd/3rd Weight Sex Type Anes PTL Millie A1 A5 Name Clin Term Living Term Living Last Filed Vital Signs Vital Sign Reading Time Taken Comments Blood Pressure 110/80 03/07/2024 4:23 PM CDT Pulse 77 03/07/2024 4:23 PM CDT Temperature 37.2 ??C (98.9 ??F) 08/24/2020 9:29 AM CS T Respiratory Rate 16 02/05/2023 1:26 PM CDT Oxygen Saturation 97% 03/07/2024 4:23 PM CDT Inhaled Oxygen Concentration - - Weight 97.1 kg (214 lb) 03/07/2024 4:23 PM CDT Height 162.6 cm (5' 4) 03/07/2024 4:23 PM CDT Body Mass Index 36.73 03/07/2024 4:23 PM CDT Plan of Treatment Upcoming Encounters Date Type Department Care Team (Late st Contact Info) Description 05/30/2024 7:50 AM SOLE ROUNDER Ancillary Procedure [facility] [address] [place] [phone] 08/29/2024 3:40 PM SOLE ROUNDER Office Visit [facility] [place] [address] [facility] [address] [place] [phone] Carmen Lantigua MD [address] [facility] [address] [place] [address] Health Maintenance Due Date Last Done Comments COVID-19 vaccine series ( season) 2024 02/11/2022, 06/25/2021, 11/09/2020, Additional history exists Influenza for age 50-64 03/27/2024 04/16/20, 04/24/2022, 04/26/2020, Additional history exists Mammogram for age 45-75 05/28/2024 05/28/20 23, 04/07/2022, 02/20/2021, Additional history exists Depression screening for age 12+ 02/21/2025 02/22/2024, 02/07/2022, 09/10/2021, Additional history exists BMI (ht and wt on same day) for age 18+ 03/07/2025 03/07/2024, 02/22/2024, 02/05/2023, Additional history exists Colonoscopy through age 75 09/06/202509/06, 09/06/2015, 09/06/2015 (Verified in Care Everywhere or Patient Record) Pap test for age 21-65 02/03/2028 3, 02/02/2023, 02/13/2020, Additional history exists Lipids for age 45-75 02/21/2029 02/22/2024, 02/02/2023, 02/07/2022, Additional history exists Tetanus booster 12/23/2032 12/23/2022, 02/24, 06/26/2001 Zoster (shingles) series for age 50+ Completed 09/30/2022, 07/31/2022 Tdap Completed 12/23/2022, 03/06/2011 HIV for age 15-65 Completed 02/22/2024 Hepatitis C screening for age 18-79 Completed 02/22/2024 Pneumococcal series for age 6-64 Aged Out No longer eligible based on patient's age to complete this topic Procedures Procedure Name Priority Date/Time Associated Diagnosis Comments SCAN CORRESP-DIAGNOSTICS 05/12/2024 12:00 AM CDT SCAN CORRESP-DIAGNOSTICS 05/12/2024 12:00 AM CDT HEMOGLOBIN Routine 02/22/2024 4:55 PM CDT Routine health maintenance VITAMIN D 25 (DEFICIENCY) Routine 02/22/2024 4:55 PM CDT Vitamin D deficiency LIPID PANEL Routine 02/22/2024 4:55 PM CDT Routine health maintenance BASIC METABOLIC PANEL Routine 02/22/2024 4:55 PM CDT Routine health maintenance TSH Routine 02/22/2024 4:55 PM CDT Hypothyroidism, unspecified type T4,FREE Routine 02/22/2024 4:55 PM CDT Hypothyroidism, unspecified type ANTI HIV 1/2 Routine 02/22/2024 4:55 PM CDT Routine health maintenance ANTI HCV Routine 02/22/2024 4:55 PM CDT Routine health maintenance XR MAMMO TERRI BILAT SCREEN Routine 05/28/2023 4:37 PM CDT Routine health maintenance HPV HIGH RISK Routine 02/02/2023 4:30 PM CDT Cervical cancer screening SCAN-COLONOSCOPY 09/06/2015 12:0 0 AM SOLE ROUNDER from Last 3 Months or Most Recently Relevant to Health Maintenance Results * SCAN CORRESP-DIAGNOSTICS (05/12/2024 12:00 AM CDT) Scanner OTHER * SCAN CORRESP-DIAGNOSTICS (05/12/2024 12:00 AM CDT) Scanner OTHER * VITAMIN D 25 (DEFICIENCY) (02/22/2024 4:55 PM CDT) VITAMIN D TOTAL 53.4 20.0 - 80.0 ng/mL 02/23/2024 11:44 AM CDT [facility] Blood BLOOD SPECIMEN / Unknown Venipuncture / Unknown 02/22/2024 4:55 PM CDT 02/22/2024 4:56 PM CDT Narrative [facility] - 02/23/2024 11:44 AM CDT ? Vitamin D Status Deficiency: ? <20 ng/mL Insufficiency: ?20-29 ng/mL Sufficiency: ?30-80 ng/mL Possible Toxicity: ??>80 ng/mL Based on [place] of Medicine recommendations Biotin supplements may cause clinically significant interference for this test assay. ??If interference is suspected, it is strongly recommended that biotin is discontinued for at least one week prior to retesting. Tesfaye Raya MD SEND OUTS [facility] [address] [place] [address], * TSH (02/22/2024 4:55 PM CDT) TSH 3.91 0.27 - 4.20 uIU/mL 02/23/2024 9:59 AM CDT [facility] Blood BLOOD SPECIMEN / Unknown Venipuncture / Unknown 02/22/2024 4:55 PM CDT 02/22/2024 4:56 PM CDT Narrative [facility] - 02/23/2024 9:59 AM CDT In Adults, TSH values between 5.00 and 10.00 uIU/ml do not necessarily indicate the presence of Hypothyroidism. Correlation with clinical findings such as presence of goiter and/or Thyroperoxidase (TPO) Antibody may be helpful. For more information please refer to SHANE 2004; 291: 228-238. Tesfaye Raya MD CHEMISTRY Performing Organization Address City/[facility]/ZIP Co de Phone Number [facility] [address] [place] [id number], [place] * ANTI HCV (02/22/2024 4:55 PM CDT) HEPATITIS C ANTIBODY Non-Reacti ve Non-React laverne 02/23/2024 10:20 AM CDT [facility] Comment:Please note, per www .CDC.gov: If a patient is known to be at high risk of HCV infection, or is symptomatic, and the physician's suspicion of HCV infection is high, HCV RNA testing is often employed and is of diagnostic value, even after an initial negative anti-HCV test result. Blood BLOOD SPECIMEN / Unknown Venipuncture / Unknown 02/22/2024 4:55 PM CDT 02/22/2024 4:56 PM CDT Tesfaye Raya MD SEND OUTS [facility] [address] [place] [address], [place] * HEMOGLOBIN (02/22/2024 4:55 PM CDT) HEMOGLOBIN 12.9 12.0 - 16.0 g/dL 02/22/2024 5:00 PM CDT [facility] MCV 91 80 - 100 fL 02/22/2024 5:00 PM CDT [facility] Blood BLOOD SPECIMEN / Unknown Venipuncture / Unknown 02/22/2024 4:55 PM CDT 02/22/2024 4:56 PM CDT Tesfaye Raya MD HEMATOLOGY Performing Organization Address City/[facility]/ZIP Co de Phone Number [facility] [address] [place] [address] * ANTI HIV 1/2 (02/22/2024 4:55 PM CDT) Pathologist [facility] HIV-1/HIV-2 SCREEN Non-Reacti ve Non-Reacti ve 02/23/2024 9:37 AM CDT [facility] Comment:HIV-1 p24 and HIV-1/ HIV-2 Ab Not Detected. Blood BLOOD SPECIMEN / Unknown Venipuncture / Unknown 02/22/2024 4:55 PM CDT 02/22/2024 4:56 PM CDT Tesfaye Raya MD SEND OUTS Performing Organization Address [facility]/ZIP Co de Phone Number [facility] [address] [place] [address], [place] * T4,FREE (02/22/2024 4:55 PM CDT) T4,FREE 1.25 0.93 - 1.70 ng/dL 02/23/2024 9:59 AM CDT [facility] Blood BLOOD SPECIMEN / Unknown Venipuncture / Unknown 02/22/2024 4:55 PM CDT 02/22/2024 4:56 PM CDT Tesfaye Raya MD CHEMISTRY Performing Organization Address City/[facility]/ZIP Co de Phone Number [facility] [address] [place] [phone], [place] * (ABNORMAL) LIPID PANEL (02/22/2024 4:55 PM CDT) Pathologist [facility] CHOLESTEROL,TOTAL 259(H) 100 - 199 mg/dL 02/23/2024 9:59 AM CDT [facility] Comment: Cholesterol, Total Reference Ranges Desirable <200 mg/dL Borderline 200-239 mg/dL High >=240 mg/dL TRIGLYCERIDES 202(H) <150 mg/dL 02/23/2024 9:59 AM CDT [facility] HDL CHOLESTEROL 58 >40 mg/dL 9:59 AM CDT [facility] NON-HDL CHOLESTEROL 201(H) <145 mg/dl 02/23/2024 9:59 AM CDT [facility] CHOL/HDL RATIO 4.47 <4.50 02/23/2024 9:59 AM CDT [facility] LDL CHOLESTEROL 161(H) <=130 mg/dL 02/23/2024 9:59 AM CDT [facility] VLDL CHOLESTEROL 40(H) <=30 mg/dL 02/23/2024 9:59 AM CDT [facility] PROVIDER ORDERED STATUS RANDOM 02/23/2024 9:59 AM T [facility] Blood BLOOD SPECIMEN / Unknown Venipuncture / Unknown 02/22/2024 4:55 PM CDT 02/22/2024 4:56 PM CDT Tesfaye Raya MD CHEMISTRY [facility] [address] [place] [phone], * (ABNORMAL) BASIC METABOLIC PANEL (02/22/2024 4:55 PM CDT) SODIUM 141 136 - 145 mmol/L 02/23/2024 9:59 AM CDT [facility] POTASSIUM 4.1 3.5 - 5.1 mmol/L 02/23/2024 9:59 AM CDT [facility] CHLORIDE 105 98 - 107 mmol/L 02/23/2024 9:59 AM T [facility] CO2,TOTAL 25 22 - 29 mmol/L 02/23/2024 9:59 AM CDT [facility] ANION GAP 11 5 - 18 02/23/2024 9:59 AM CDT [facility] GLUCOSE 94 70 - 99 mg/dL 02/23/2024 9:59 AM CDT [facility] CALCIUM 10.0 8.6 - 10.0 mg/dL 02/23/2024 9:59 AM CDT [facility] BUN 12 6 - 20 mg/dL 02/23/2024 9:59 AM CDT [facility] CREATININE 1.01(H) 0.50 - 0.90 mg/dL 02/23/2024 9:59 AM CDT [facility] BUN/CREAT RATIO 12 10 - 20 9:59 AM CDT [facility] eGFR 67(L) >90 mL/min/1.7 3m2 02/23/2024 9:59 AM CDT [facility] Comment:As of 2021, eG FR is calculated by the CKD-EPI creatinine equation without race adjustment. ??eGFR can be influenced by muscle mass, exercise, and diet. ??The reported eGFR is an estimation only and is only applicable if the renal function is stable. Blood BLOOD SPECIMEN / Unknown Venipuncture / Unknown 02/22/2024 4:55 PM CDT 02/22/2024 4:56 PM CDT Tesfaye Raya MD CHEMISTRY [facility] [address] [place] [address], [place] * XR MAMMO TERRI BILAT SCREEN (05/28/2023 4:37 PM CDT) Anatomical Region Laterality Modality BREASTS, Breast Left, Breast Right Bilateral Mammography Impressions 05/29/2023 2:51 PM CDT ??There is no radiographic evidence for malignancy. ??Recommend annual mammograms. MAMMOGRAM ASSESSMENT: ??ACR 1 Negative PATIENTS: You will also receive a letter with your examination results in an easy to read format. ??If you have questions about your results, please contact your referring provider. Narrative 05/29/2023 2:51 PM CDT For Patients: As a result of the Century Cures Act, medical imaging exams and procedure reports are released immediately into your electronic medical record. You may view this report before your referring provider. If you have questions, please contact your health care provider. XR MAMMO TERRI BILAT SCREEN [[id number]] CLINICAL HISTORY: ??This is an asymptomatic 52 y.o. patient. INDICATION FOR EXAM: Mammogram Screening. TECHNIQUE: CC & MLO views were obtained. ??This study was evaluated with the assistance of Computer-Aided Detection. Breast Tomosynthesis was used in interpretation. COMPARISON FILM: Yes 04/07/22 ?? 02/12/21 ?? FINDINGS: ??The breasts are heterogeneously dense, which may obscure small masses. There are no dominant masses, suspicious micro calcifications or areas of architectural distortion. Tesfaye Raya MD MAMMO * HPV HIGH RISK (02/02/2023 4:30 PM CDT) TYPE 16 Negative Negative 02/06/2023 4:12 PM CDT [facility] TYPE 18 Negative Negative 02/06/2023 4:12 PM CDT [facility] OTHER HIGH RISK TYPES Negative Negative 02/06/2023 4:12 PM CDT [facility] Other (Cervical/Vagina l) Non-Blood / Unknown 02/02/2023 4:30 PM CDT 02/03/2023 12:11 PM CDT Narrative [facility] - 02/06/2023 4:12 PM CDT HPV types 16, 18, 31, 33, 35, 39, 45, 51, 52, 56, 58, 59, 66 and 68 DNA were undetectable or below the pre-set threshold. Methodology: [facility] 4800 HPV Test Tesfaye Raya MD MICROBIOLOGY [facility] [address] [place] [address], [place] * SCAN-COLONOSCOPY (09/06/2015 12:00 AM SOLE ROUNDER) Scanner OTHER from Last 3 Months or Most Recently Relevant to Health Maintenance Advance Directives Documents on File Type Date Recorded Patient Fabrication Lead Expl anation Healthcare Directive 09/12/2006 * Full Code (Latest Code Status on File) Date Activated Date Inactivated Comments 05/02/2015 10:30 AM 05/09/2015 7:46 PM Question Answer Comments Code Status Discussion: Not DiscussedPer Existin g Order * Full Code Date Activated Date Inactivated Comments 04/14/2015 8:08 PM 04/20/2015 7:04 PM * Full Code Date Activated Date Inactivated Comments 04/14/2015 6:25 PM 04/14/2015 8:08 PM * Full Code Date Activated Date Inactivated Comments 08/16/2006 12:49 AM 08/20/2006 12:36 PM Care Teams Fat Purification Worker Relationship Specialty [place] [address] [place] [address] PCP - General 12/17/09
--- OUTSIDE RECORDS SUMMARY | 2024-05-15 13:14 | XMS_ITS | Clinical Summary ---
Author Organization [employer] [facility] Address [address] [place] [address] Care Team Providers Care [employer] Feeder Name Role Phone Tesfaye Raya MD Primary Care Provider [phone] Source Comments You are receiving this document as you are listed as the primary care provider,follow-up provider, or the patient has been referred to you for consultation.This is in compliance with the Medicare andMedicaid EHR Incentive Program,which states Providers who transition their patient to another setting of careor provider of care or refers their patient to another provider of care shouldprovide summary care record for each transition of care or referral. [employer] Allergies No known active allergies Medications Medication Sig Dispensed Refills Start Date End Date Status atorvastatin (LIPITOR) 40 MG tabletIndications:Hypo thyroidism (acquired) ([facility]),Abnormal TSH 03/04/2016 Active fludrocortisone (FLORINEF) 0.1 MG tabletIndications:Hypo thyroidism (acquired) ([facility]),Abnormal TSH 05/08/2016 Active levothyroxine (SYNTHROID) 100 MCG tabletIndications:Hypo thyroidism (acquired) ([facility]),Abnormal TSH 05/15/2016 Active lithium carbonate (LITHOBID) 300 MG extended release tabletIndications:Hypo thyroidism (acquired) ([facility]),Abnormal TSH TAKE 3-4 TABLETS BY MOUTH NIGHTLY AT BEDTIME 2 05/08/2016 Active sertraline (ZOLOFT) 100 MG tabletIndications:Hypo thyroidism (acquired) ([facility]),Abnormal TSH Take 100 mg by mouth daily. 2 05/01/2016 Active traZODone (DESYREL) 50 MG tabletIndications:Hypo thyroidism (acquired) ([facility]),Abnormal TSH Take 50 mg by mouth daily at bedtime. 3 05/08/2016 Active Social History Tobacco Use Types Packs/Day Years Used Date Smoking Tobacco: Never Sex and Gender Information Value Date Recorded Sex Assigned at Not on file Gender Identity Not on file Sexual Orientation Not on file Last Filed Vital Signs [...] Date Last Done Comments Cervical Cancer Screening Due 1970 Colon Cancer Screening Plan Due 1970 Hep C Screening (Preventive Services) 1970 HIV Screening (Preventive Services) 1986 Adult Preventive Visit 1988 HepB (1) 1989 Mammogram 03/01/2011 03/01/2010 Cholesterol 11/22/2015 Zoster/Shingles (1 of 2) 2020 DTaP/Tdap/Td (2 - Tdap) 03/06/2021 03/06/2011, 06/26 COVID-19 Vaccine ( season) 2024 11/09/2020, 10/12/2020 Influenza (#1) 2024 04/26/2020, 10/2019, 04/02/2019, Additional history exists HepA Aged Out No longer eligi ble based on patient's age to complete this topic Hib Aged Out No longer eligi ble based on patient's age to complete this topic IPV (Polio) Aged Out No longer eligi ble based on patient's age to complete this topic Infant RSV Aged Out No longer eligi ble based on patient's age to complete this topic MCV4 Aged Out No longer eligi ble based on patient's age to complete this topic Pneumococcal Aged Out No longer eligi ble based on patient's age to complete this topic Care Teams [employer] Relationship Specialty [place] [id number] [place] [address] PCP - General Family Practice 05/29/16
[2024-05-15 13:22] LABS: Slide Review Reflex No
[2024-05-15 13:27] LABS: Chloride* 103 mmol/L (96-114); Potassium* 4.2 mmol/L (3.6-5.1); Sodium* 136 mmol/L (135-149)
[2024-05-15 13:30] LABS: Anion Gap 9 mEq/L (7-15); Blood Urea Nitrogen* 15 mg/dL (7-30); Carbon Dioxide* 24 mmol/L (20-32); Est. Creatinine Clearance* 58.54; Estimated Glomerular Filt Rate 67 ml/min; Glucose* 108 mg/dL (60-115)
[2024-05-15 13:31] LABS: Calcium* 9.8 mg/dL (8.4-10.6); Magnesium* 2.2 mg/dL (1.5-2.6)
[2024-05-15 13:32] LABS: D Dimer Quantitative* 0.59 ug/ml (0.00-0.50)
[2024-05-15 13:44] LABS: Troponin I* < 0.01 ng/mL (0.01-0.04)
--- NOTE | 2024-05-15 13:46 | CRLHL7_ITS ---
For Patients: As a result of the Century Cures Act, medical imaging exams and procedure reports are released immediately into your electronic medical record. You may view this report before your referring provider. If you have questions, please contact your health care provider. INDICATION: Right eye swelling. Drainage. TECHNIQUE: CT images the orbits following intravenous contrast. COMPARISON: CT orbits 03/21/2016. FINDINGS: The globes, extraocular muscles, and optic nerve sheath complexes are symmetric in size and enhancement. No intraorbital mass or hemorrhage. No peripherally enhancing collection to suggest abscess. Right periorbital soft tissue swelling and stranding. [id number] maxillary sinus mucosal thickening. Mastoid air cells are clear. Limited images through the brain are without pathologic intracranial enhancement. IMPRESSION: Right periorbital soft tissue swelling and enhancement, most compatible with periorbital cellulitis. No abscess or postseptal inflammation. Please note that all CT scans at this facility use dose modulation, iterative reconstruction, and/or weight-based dosing when appropriate to reduce radiation dose to as low as reasonably achievable. Dictated by Apolinar Palacio MD @ 05/15/2024 3:16:28 PM (Electronically Signed)
--- NOTE | 2024-05-15 13:46 | CRLHL7_ITS ---
For Patients: As a result of the Century Cures Act, medical imaging exams and procedure reports are released immediately into your electronic medical record. You may view this report before your referring provider. If you have questions, please contact your health care provider. INDICATION: Infection, syncope. COMPARISON: None. TECHNIQUE: CT angiogram chest with contrast, pulmonary embolism protocol. Multiplanar axial, coronal, and sagittal reformats are included. MIP images to improve detection of pulmonary emboli are included. Intravenous contrast: 95 mL Isovue 370. FINDINGS: PE: Well-timed contrast bolus. No pulmonary emboli. Normal caliber main pulmonary artery. Normal sized right heart chambers. No reflux of contrast below the diaphragm. Airway: Expiratory appearance of the airway. Lungs: Mild multifocal atelectasis. No nodules or masses. No consolidations. No pulmonary edema. No findings of interstitial lung disease. Pleura: Small bilateral pleural effusions. Effusions appear simple and are layering posteriorly without any loculation seen. No pneumothorax. Lymph nodes: No thoracic adenopathy. Mediastinum: No pneumomediastinum. No mass. Heart and great vessels: No pericardial effusion. Normal cardiac chamber size. No calcified atherosclerotic plaques. No aortic aneurysm. Chest wall: Normal. No masses. Upper abdomen: Normal. Bones: No fractures. No focal bone lesions. IMPRESSION: Small bilateral pleural effusions of unclear etiology. Please note that all CT scans at this facility use dose modulation, iterative reconstruction, and/or weight-based dosing when appropriate to reduce radiation dose to as low as reasonably achievable. Dictated by Ami Smith MD @ 05/15/2024 3:28:25 PM (Electronically Signed)
--- NOTE | 2024-05-15 13:47 | CRLHL7_ITS ---
For Patients: As a result of the Century Cures Act, medical imaging exams and procedure reports are released immediately into your electronic medical record. You may view this report before your referring provider. If you have questions, please contact your health care provider. INDICATION: Fall, syncope TECHNIQUE: CT head without contrast. COMPARISON: None. FINDINGS: the lateral ventricles with prominence of the left lateral ventricle and sylvian fissure relative to right, likely related to greater volume loss on the left. Basal cisterns patent. No sulcal effacement. The ventricles, cisterns, and other CSF containing spaces are symmetrically prominent secondary to diffuse parenchymal volume loss but are otherwise normal as to shape and position. BRAIN: Diffuse cerebral volume loss, [id number]. No acute infarct or hemorrhage. VASCULAR: No acute abnormalities of the cavernous carotids and vertebral vessels on noncontrast exam. EXTRA-AXIAL: Extra-axial spaces are normal. EXTRA-CRANIAL: No acute calvarial or facial fractures. Left maxillary sinus mucous retention cyst. Mild polypoid mucosal thickening in the right maxillary sinus. Mastoids are clear. Right periorbital soft tissue swelling. IMPRESSION: No acute intracranial abnormality. Mild cerebral volume loss, [id number]-right and greater than expected for age. Right periorbital soft tissue swelling. See separately dictated CT orbits for further details. Please note that all CT scans at this facility use dose modulation, iterative reconstruction, and/or weight-based dosing when appropriate to reduce radiation dose to as low as reasonably achievable. Dictated by Christine Ocampo MD @ 05/15/2024 3:23:32 PM (Electronically Signed)
[2024-05-15 14:05] LABS: PCR FLU A Negative PCR FLU A (Negative); PCR FLU B Negative PCR FLU B (Negative); SARS PCR* Negative SARS-CoV-2 (Negative)
[2024-05-15 14:20] LABS: Appearance Urine Clear (Clear); Bilirubin Urine Negative (Negative); Blood Urine Trace-intact (Negative); Color Urine Yellow (Yellow); Glucose Urine Negative (Negative); Ketones Urine Negative (Negative); Leukocyte Esterase Urine 1+ (Negative); Nitrite Urine Negative (Negative); Protein Urine Negative (Negative); Urobilinogen Urine 0.2 (0.2-1.0); pH Urine 6.5 (5.0-8.5)
[2024-05-15 14:33] LABS: RBC Urine 0-2 (0-2)
[2024-05-15 14:34] LABS: Bacteria Urine Few; Squamous Epithelial Cell Urine Few (None-Few)
== END 2024-05-15 16:30 | disposition home or self-care (01) ==
PROVIDERS: Emergency Provider Student in an Organized Health Care Education/Training Program; PCP Family Medicine
DX: L03.213 Periorbital cellulitis (principal); R55 Syncope and collapse
CPT/HCPCS: 36415; 70450; 70481; 71045; 71275; 80048; 81001; 83735; 84484; 85025; 85379; 87086; 87631; 93005; 96360; 99284; 99285; J7030; Q9967